=== PATIENT | female | born 1965 | race Caucasian/White ===

== ENCOUNTER 2016-08-07 17:09 | Emergency (ER) | payer MEDICARE, MEDICAID ==
--- NOTE | 2016-08-07 17:48 | ER Document Report ---
ED Medical Screen (RME) - General Chief Complaint: Rib Pain Stated Complaint: LEFT FLANK PAIN TRAVEL OUTSIDE OF THE [place] IN LAST 30 DAYS: No - HPI Notes: 08/07/16 17:47 Patient coming in with left lateral chest wall pain started about 4 hours prior to arrival sharp shooting stabbing. Difficult to assess due to patient closing the possible rash beginning at the area. Ration currently on treatment for pneumonia and Levaquin. - Related Data Allergies/Adverse Reactions: cefaclor [From Ceclor] Allergy (Verified 08/07/16 17:35) Penicillins Allergy (Verified 08/07/16 17:35) Past Medical History Renal/ Medical History: Denies: Hx Peritoneal Dialysis Review of Systems - Review of Systems Cardiovascular: Chest pain Physical Exam - Vital signs Vitals: Temp Pulse Resp BP Pulse Ox 97.9 F 92 20 142/88 H 96 08/07/16 17:37 08/07/16 17:37 08/07/16 17:37 08/07/16 17:37 08/07/16 17:37 - Respiratory Respiratory status: No respiratory distress Chest status: Tender - Tenderness to palpation of left-sided chest Course - Vital Signs Vital signs: Temp Pulse Resp BP Pulse Ox 97.9 F 92 20 142/88 H 96 08/07/16 17:37 08/07/16 17:37 08/07/16 17:37 08/07/16 17:37 08/07/16 17:37
[2016-08-07 19:24] LABS: ABSOLUTE BASOPHILS # (AUTO) 0.1 10^3/uL (0.0-0.2); ABSOLUTE EOSINOPHILS # (AUTO) 0.2 10^3/uL (0.0-0.6); ABSOLUTE LYMPHOCYTES (AUTO) 2.4 10^3/uL (0.5-4.7); ABSOLUTE MONOCYTES (AUTO) 0.6 10^3/uL (0.1-1.4); ABSOLUTE NEUT (AUTO) 2.8 10^3/uL (1.7-8.2); BASOPHILS % (AUTO) 1.4 % (0-2); EOSINOPHILS % (AUTO) 2.7 % (0-6); HEMATOCRIT 34.5 % (36.0-47.0); HEMOGLOBIN 11.7 g/dL (12.0-15.5); HGB HCT DIFFERENCE 0.6; LYMPHOCYTES % (AUTO) 40.2 % (13-45); MEAN CORPUSCULAR HEMOGLOBIN 29.2 pg (27.0-33.4); MEAN CORPUSCULAR VOLUME 86 fl (80-97); MONOCYTES % (AUTO) 9.8 % (3-13); RED BLOOD COUNT 4.01 10^6/uL (3.72-5.28); RED CELL DISTRIBUTION WIDTH 15.1 % (11.5-14.0); SEGMENTED NEUTROPHILS % (AUTO) 45.9 % (42-78); WHITE BLOOD COUNT 6.1 10^3/uL (4.0-10.5)
[2016-08-07 19:37] LABS: ALANINE AMINOTRANSFERASE 21 U/L (9-52); ALBUMIN 3.4 g/dL (3.5-5.0); ALKALINE PHOSPHATASE 74 U/L (38-126); ANION GAP 12 (5-19); ASPARTATE AMINO TRANSFERASE 17 U/L (14-36); BILIRUBIN,DIRECT 0.3 mg/dL (0.0-0.4); BILIRUBIN,TOTAL 0.4 mg/dL (0.2-1.3); BLOOD UREA NITROGEN 5 mg/dL (7-20); CALCIUM 9.1 mg/dL (8.4-10.2); CARBON DIOXIDE 27 mmol/L (22-30); CHLORIDE 107 mmol/L (98-107); CREATINE KINASE 60 U/L (30-135); CREATININE RESULT 1.02 mg/dL (0.52-1.25); GLUCOSE 86 mg/dL (75-110); POTASSIUM 3.5 mmol/L (3.6-5.0); SODIUM 146.3 mmol/L (137-145)
[2016-08-07] MEDS ORDERED: MORPHINE SULFATE 10 MG/ML INJ IV PRN ×2 (19:41→22:37)
[2016-08-07] MEDS ORDERED: ONDANSETRON HCL INJ/PF 4 MG/2 ML SDV IV ONE (19:42)
[2016-08-07 19:48] LABS: TROPONIN I 0.016 ng/mL
[2016-08-07 19:49] LABS: CREATINE KINASE MB < 0.22 ng/mL (<4.55)
[2016-08-07 19:51] LABS: PROTHROMBIN TIME 13.4 SEC (11.4-15.4)
[2016-08-07 20:11] LABS: APPEARANCE,URINE SLIGHTLY-CLOUDY; BILIRUBIN,URINE NEGATIVE (NEGATIVE); GLUCOSE, URINE NEGATIVE (NEGATIVE); KETONES,URINE NEGATIVE (NEGATIVE); LEUKOCYTE ESTERASE,URINE NEGATIVE (NEGATIVE); NITRITE,URINE NEGATIVE (NEGATIVE); PROTEIN,URINE NEGATIVE (NEGATIVE); URINE SPECIFIC GRAVITY 1.018; UROBILINOGEN,URINE NEGATIVE mg/dL (<2.0)
--- NOTE | 2016-08-07 20:44 | ER Document Report ---
ED General - General Chief Complaint: Rib Pain Stated Complaint: LEFT FLANK PAIN Time seen by provider: 20:43 Mode of Arrival: Ambulatory Information source: Patient Notes: This is a 50-year-old female with a history of bronchitis, mono and a recent diagnosis of pneumonia (just finished 7 days of Levaquin and prednisone). The patient presents to the emergency room with sharp left-sided pleuritic chest pain since yesterday. TRAVEL OUTSIDE OF THE [place] IN LAST 30 DAYS: No - HPI Onset: Yesterday Onset/Duration: Gradual Quality of pain: Sharp Severity: Moderate Pain Level: 3 Associated symptoms: Chest pain. denies: Fever, Shortness of breath Exacerbated by: Denies Relieved by: Denies Similar symptoms previously: No Recently seen / treated by doctor: No - Related Data Allergies/Adverse Reactions: cefaclor [From [facility]] Allergy (Verified 08/07/16 17:35) Penicillins Allergy (Verified 08/07/16 17:35) Past Medical History - General Information source: Patient - Social History Smoking Status: Never Smoker Chew tobacco use (# tins/day): No Frequency of alcohol use: None Drug Abuse: None Lives with: Family Family History: Reviewed & Not Pertinent Patient has suicidal ideation: No Patient has homicidal ideation: No Pulmonary Medical History: Reports: Hx Pneumonia Renal/ Medical History: Denies: Hx Peritoneal Dialysis Past Surgical History: Reports: Hx Cholecystectomy Review of Systems - Review of Systems Notes: Review of systems: Constitutional: Denies fever, chills. EENT: Denies ear pain, sinus tenderness, throat pain, throat swelling. Cardiovascular: See H&P Respiratory: See H&P Abdomen: Denies abdominal pain, nausea, vomiting, diarrhea. Denies BRBPR or melena. Genitourinary: Denies dysuria, pyuria, hematuria, flank pain. Musculoskeletal: denies joint pain or swelling, denies back pain. Neurologic: Denies headache, photophobia, neck stiffness, weakness. Denies loss of bowel or bladder function. Denies saddle anesthesia. Skin: Denies rash, lesions. Physical Exam - Vital signs Vitals: Temp Pulse Resp BP Pulse Ox 97.9 F 92 20 142/88 H 96 08/07/16 17:37 08/07/16 17:37 08/07/16 17:37 08/07/16 17:37 08/07/16 17:37 Notes: Physical exam: GENERAL: 50-year-old female, alert and oriented 3, no acute distress. Oxygen saturation 96% room air. HEAD: Atraumatic, normocephalic. EYES: Pupils equal round and reactive to light, extraocular movements intact, sclera anicteric, conjunctiva are normal. ENT: TMs normal, nares patent, oropharynx clear without exudates. Moist mucous membranes. NECK: Normal range of motion, supple without lymphadenopathy or JVD. LUNGS: Breath sounds clear to auscultation bilaterally and equal. No wheezes rales or rhonchi. HEART: Regular rate and rhythm without murmurs, rubs or gallops. ABDOMEN: Soft, normoactive bowel sounds. No tenderness to palpation. No guarding, no rebound. No masses appreciated. EXTREMITIES: Normal range of motion, no pitting or edema. No clubbing or cyanosis. NEUROLOGICAL: Cranial nerves II through XII grossly intact. Normal speech, normal gait. PSYCH: Normal mood, normal affect. SKIN: Warm, Dry, normal turgor, no rashes or lesions noted. Course - Re-evaluation Re-evalutation: 08/08/16 00:16 Note: This is a 50-year-old female somewhat overweight or presents to the emergency room with pleuritic chest pain for one day. She gives a history of having bronchitis, then mono than a pneumonia and just recently finished seven- day course of Levaquin. Her symptoms are very pleuritic in nature. We were unable to do a CTA due to poor antecubital IV access. A VQ scan was performed which showed no mismatches. They did see atelectasis down in the left lower lung and there was a defect in this area (i.e. matched). This is suggestive against pulmonary emboli. The patient has not had any lower extremity symptoms , however, her D-dimer is quite elevated. It's unclear whether this could be due to her recent pneumonia. In any event, I did give her some subcutaneous Lovenox and we will have her come back tomorrow morning for bilateral lower extremity Doppler exam. If the lower extremity Doppler exam was negative, I would stop there. I gave the patient a copy of all her labs to follow up with her primary care doctor. The case was discussed with Dr. Parker of hematology. - Vital Signs Vital signs: Temp Pulse Resp BP Pulse Ox 97.9 F 92 16 100/74 94 08/07/16 17:37 08/07/16 17:37 08/07/16 22:49 08/07/16 22:49 08/07/16 22:49 - Laboratory Result Diagrams: 08/07/16 18:50 08/07/16 18:50 Laboratory results interpreted by me: 08/07/16 08/07/16 08/07/16 18:50 18:50 23:07 Hgb 11.7 L Hct 34.5 L RDW 15.1 H D-Dimer 2.21 H Sodium 146.3 H Potassium 3.5 L BUN 5 L Est GFR (Non-Af Amer) 57 L Total Protein 6.0 L Albumin 3.4 L - Diagnostic Test Radiology reviewed: Image reviewed, Reports reviewed - Chest x-ray shows no infiltrates - EKG Interpretation by Me Rate: Normal Rhythm: NSR - EKG shows normal sinus rhythm with a ventricular rate of 87, no acute ST-T wave changes. Discharge - Discharge Clinical Impression: pleurisy Condition: Stable Disposition: HOME, SELF-CARE Additional Instructions: Today in the ER: One of the blood tests (d-dimer) was elevated. This test can be elevated and the presence of blood clots. However, You had a ventilation perfusion scan of your lung to look for blood clots. The test did not show any evidence of blood clots. He would like you to come back in the morning to the outpatient radiology to have bilateral lower extremity Doppler ultrasounds. He would enter the front of the hospital and then ask for outpatient radiology. Bring the hospital imaging performed with you when you go. Continue follow-up with your primary care doctor, bring a copy of today's labs and x-ray reports with you. Return to the emergency room for worsening pain, shortness of breath or concerns he getting worse. Prescriptions: Hydrocodone/Acetaminophen [Poyntelle 5-325 mg Tablet] 1 tab PO Q6HP PRN #14 tablet PRN Reason: Referrals: SHAHRAM DUVALL MD [Primary Care Provider] - Follow up in 3-5 days (Bring a copy of today's lab work and radiology reports with you when you go to the physician' s office.)
--- NOTE | 2016-08-07 20:50 | EKG REPORT ---
SEVERITY:- BORDERLINE ECG - SINUS RHYTHM PROBABLE LEFT ATRIAL ABNORMALITY BORDERLINE R WAVE PROGRESSION, ANTERIOR LEADS : Confirmed by: Vasyl Denise 07-Aug-2016 20:49:33
[2016-08-07] MEDS ORDERED: MAGNESIUM SULFATE/D5W 100 ML IV ONE (23:24)
[2016-08-07] MEDS ORDERED: POTASSIUM CHLORIDE 20 MEQ/15 ML UDCUP PO ONE (23:24)
[2016-08-08] MEDS ORDERED: HYDROCODONE/ACETAMINOPHEN 5-325 MG 6 TAB/DSPK PO PRN (00:09)
[2016-08-08] MEDS ORDERED: ENOXAPARIN SODIUM INJ 100 MG/1 ML DISP.SYRIN SUBCUT ONE (00:10)
[2016-08-08 01:51] VITALS: BP 104/55
== END 2016-08-08 00:30 | disposition home or self-care (01) ==
LOC: ER 17:09
DX: R09.1 Pleurisy (principal); J98.11 Atelectasis; Z87.01 Personal history of pneumonia (recurrent); Z88.1 Allergy status to other antibiotic agents; Z88.0 Allergy status to penicillin; E66.3 Overweight; Z68.36 Body mass index [BMI] 36.0-36.9, adult
CPT/HCPCS: 93005; 96376; 99284; 96372; 96374; 96375; 36415; 82553; 82550; 85025; 85610; 80053; 81001; 84484; 85379; 71020; 78582; 93010; A9540; A9567; J2270; A9270 ×2; J2405; J1650; Q9969

== ENCOUNTER → 2016-08-08 | Outpatient (CLI) | payer MEDICARE, MEDICAID | LOC: SP 13:02 | PROVIDERS: ATTEND Emergency Medicine | DX: R79.1 Abnormal coagulation profile (principal); R07.81 Pleurodynia | CPT/HCPCS: 93970 ==

== ENCOUNTER 2016-11-25 13:04 | Emergency (ER) | payer MEDICARE, MEDICAID ==
[2016-11-25 13:18] VITALS: BP 131/89
--- NOTE | 2016-11-25 14:21 | ER Document Report ---
HPI - HPI Patient complains to provider of: spider bite left ear Onset: Yesterday Pain Level: 3 Context: 50-year-old female complaining of possible spider bite to the external left ear. She cannot really see it but she can feel it and she is worried that it is a spider bite. It feels irritated and itchy. Associated Symptoms: None Exacerbated by: Denies Relieved by: Denies Similar symptoms previously: Yes Recently seen / treated by doctor: No - ROS ROS below otherwise negative: Yes Systems Reviewed and Negative: Yes All other systems reviewed and negative - DERM Skin Color: Normal Past Medical History - General Information source: Patient - Social History Smoking Status: Never Smoker Frequency of alcohol use: None Drug Abuse: None Lives with: Family Family History: Reviewed & Not Pertinent Pulmonary Medical History: Reports: Hx Pneumonia Renal/ Medical History: Denies: Hx Peritoneal Dialysis Past Surgical History: Reports: Hx Cholecystectomy Vertical Provider Document - CONSTITUTIONAL Agree With Documented VS: Yes - INFECTION CONTROL TRAVEL OUTSIDE OF THE [place] IN LAST 30 DAYS: No - HEENT HEENT: Atraumatic, Normocephalic Notes: Left external ear over the cartilage is a crusted 3 mm area that looks like she scratched. There is no tissue necrosis. - NECK Neck: Supple - RESPIRATORY O2 Sat by Pulse Oximetry: 95 - NEURO Level of Consciousness: Awake, Alert - DERM Integumentary: Warm, Dry Notes: see above Course - Vital Signs Vital signs: Temp Pulse Resp BP Pulse Ox 99 F 90 16 131/89 H 95 11/25/16 13:15 11/25/16 13:15 11/25/16 13:15 11/25/16 13:15 11/25/16 13:15 Discharge - Discharge Clinical Impression: left external ear insect bite Condition: Good Disposition: HOME, SELF-CARE Instructions: Bactroban Ointment ([facility]) Additional Instructions: bactroban small amount three times per day for 3 days to er any concerns Please complete the patient satisfaction survey if you get one, and return it.. If you do not receive a survey, then you can go to the [facility] website, [email or web address] and place your comments about your very good care. Thank you very much. It was a pleasure being your medical provider today. Referrals: SHAHRAM DUVALL MD [Primary Care Provider] - Follow up as needed
[2016-11-25] MEDS ORDERED: MUPIROCIN 2% OINTMENT 22 GM TP ONE (14:27)
== END 2016-11-25 15:00 | disposition home or self-care (01) ==
LOC: ER 13:04
DX: S00.462A Insect bite (nonvenomous) of left ear, initial encounter (principal); W57.XXXA Bitten or stung by nonvenomous insect and other nonvenomous arthropods, initial encounter
CPT/HCPCS: 99281; A9270; J3490

== ENCOUNTER 2016-11-27 20:11 | Emergency (ER) | payer MEDICARE, MEDICAID ==
[2016-11-27 20:25] VITALS: BP 141/87
--- NOTE | 2016-11-27 22:29 | ER Document Report ---
ED General - General Chief Complaint: spider bite Stated Complaint: POSSIBLE SPIDER BITE Time Seen by Provider: 11/27/16 22:21 Notes: Patient is a 50-year-old female presents with complaint of a bite sharon to her left ear. She was seen a few days ago and told to place bacitracin ointment over it. She says she developed a scab over the area is concerned with this. She said she initially had some redness but the redness has since gone. She also has 2 new bite fuller just below the hairline in the back of her neck. She is unsure what is causing this. She denies any fevers. No vomiting. No facial swelling. No other complaints at this time. TRAVEL OUTSIDE OF THE [place] IN LAST 30 DAYS: No - Related Data Allergies/Adverse Reactions: cefaclor [From [facility]] Allergy (Verified 11/27/16 20:25) Penicillins Allergy (Verified 11/27/16 20:25) Past Medical History - Social History Smoking Status: Unknown if Ever Smoked Frequency of alcohol use: None Drug Abuse: None Family History: Reviewed & Not Pertinent Patient has suicidal ideation: No Patient has homicidal ideation: No Pulmonary Medical History: Reports: Hx Pneumonia Renal/ Medical History: Denies: Hx Peritoneal Dialysis Past Surgical History: Reports: Hx Cholecystectomy Review of Systems - Review of Systems Notes: My Normal Review Basic REVIEW OF SYSTEMS: CONSTITUTIONAL : Denies fever, chills, or sweats. Denies recent illness. EENT: left Ear irritation SKIN: 2 small bug bites just below the hairline on her neck. ALL OTHER SYSTEMS REVIEWED AND NEGATIVE. Physical Exam - Vital signs Vitals: Temp Pulse Resp BP Pulse Ox 97.8 F 94 18 141/87 H 98 11/27/16 20:23 11/27/16 20:23 11/27/16 20:23 11/27/16 20:23 11/27/16 20:23 - Notes Notes: General Appearance: Well nourished, alert, cooperative, no acute distress, no obvious discomfort. Vitals: reviewed, See vital signs table. Head: no swelling or tenderness to the head Eyes: PERRL, EOMI, Conjuctiva clear Ear: Patient is left ear has an approximately 2 mm scab over the antihelix. There is a small rounded circular. There is no associated tissue necrosis. No surrounding erythema. Neck: Supple, no neck tenderness, 2 small bug bites just below the hairline on the posterior neck. No surrounding erythema or signs of infection. Neuro: speech clear, oriented x 3, normal affect, responds appropriately to questions. Course - Vital Signs Vital signs: Temp Pulse Resp BP Pulse Ox 97.8 F 94 18 141/87 H 98 11/27/16 20:23 11/27/16 20:23 11/27/16 20:23 11/27/16 20:23 11/27/16 20:23 - Transfer of Care Notes: 11/28/16 00:29 Patient is has a very small scab from what appears to be previous bug bites over the antihelix of the ear. There is no surrounding erythema or signs of infection. I informed her that once new skin forms underneath the scab the scab will most likely follow-up. I told her if she develops any redness or swelling to the ear that she should return to the ER immediately. Patient agrees with plan and will be discharged home. Dictation of this chart was performed using voice recognition software; therefore, there may be some unintended grammatical errors. Discharge - Discharge Clinical Impression: Scab Bug bite Qualifiers: Encounter type: initial encounter Qualified Code(s): W57.XXXA - Bitten or stung by nonvenomous insect and other nonvenomous arthropods, initial encounter Condition: Good Disposition: HOME, SELF-CARE Additional Instructions: Please return to the ER if you have any spreading redness or swelling from the scab on your ear. Please follow up with your doctor or the ER in 1 week if the scab is not gone. Referrals: SHAHRAM DUVALL MD [Primary Care Provider] - Follow up as needed
== END 2016-11-27 22:40 | disposition home or self-care (01) ==
LOC: ER 20:11
DX: S10.86XA Insect bite of other specified part of neck, initial encounter (principal); S00.462A Insect bite (nonvenomous) of left ear, initial encounter; W57.XXXA Bitten or stung by nonvenomous insect and other nonvenomous arthropods, initial encounter; Z88.0 Allergy status to penicillin; Z90.49 Acquired absence of other specified parts of digestive tract
CPT/HCPCS: 99282

== ENCOUNTER 2018-06-01 16:23 | Emergency (ER) | payer MEDICARE, MEDICAID ==
[2018-06-01] MEDS ORDERED: NORMAL SALINE 1000 ML 1,000 ML IV PRN (17:03)
--- NOTE | 2018-06-01 17:05 | ER Document Report ---
ED Medical Screen (RME) - General Chief Complaint: Diarrhea Stated Complaint: LOOSE BOWELS Time Seen by Provider: 06/01/18 17:01 Primary Care Provider: KEIRA DUVALL MD [Primary Care Provider] - Follow up as needed Notes: Patient is complaining of diarrhea daily for the past month or more. She says she has about 2 loose stools a day that are loose and watery. No blood in the bowel movements. Does not have any abdominal pains. Does not have any nausea or vomiting. Never diagnosed with a gastrointestinal disease. Says she has no appetite and does not eat much, although she says she does drink fluids. Denies any difficulty breathing or shortness of breath. Denies fever. Was not treated with any antibiotics in the months before she started having the diarrhea. Heart rates about 120-130. TRAVEL OUTSIDE OF THE [place] IN LAST 30 DAYS: No - Related Data Allergies/Adverse Reactions: cefaclor [From Ceclor] Allergy (Verified 06/01/18 16:30) Penicillins Allergy (Verified 06/01/18 16:30) Past Medical History - Social History Chew tobacco use (# tins/day): No Frequency of alcohol use: None Drug Abuse: None Pulmonary Medical History: Reports: Hx Pneumonia Renal/ Medical History: Denies: Hx Peritoneal Dialysis Past Surgical History: Reports: Hx Cholecystectomy Physical Exam - Vital signs Vitals: Temp Pulse Resp BP Pulse Ox 99.0 F 123 H 15 107/58 L 95 06/01/18 16:36 06/01/18 16:36 06/01/18 16:36 06/01/18 16:36 06/01/18 16:36 Course - Vital Signs Vital signs: Temp Pulse Resp BP Pulse Ox 99.0 F 123 H 15 107/58 L 95 06/01/18 16:36 06/01/18 16:36 06/01/18 16:36 06/01/18 16:36 06/01/18 16:36 Doctor's Discharge - Discharge Referrals: KEIRA DUVALL MD [Primary Care Provider] - Follow up as needed
--- NOTE | 2018-06-01 18:29 | EKG REPORT ---
SEVERITY:- ABNORMAL ECG - SINUS TACHYCARDIA CONSIDER ANTERIOR INFARCT ABNORMAL T, CONSIDER ISCHEMIA, LATERAL LEADS : Confirmed by: Teofilo Ahn MD 01-Jun-2018 18:28:11
[2018-06-01 18:57] LABS: ABSOLUTE EOSINOPHILS # (AUTO) 0.1 10^3/uL (0.0-0.6); ABSOLUTE MONOCYTES (AUTO) 0.4 10^3/uL (0.1-1.4); ABSOLUTE NEUT (AUTO) 3.5 10^3/uL (1.7-8.2); BASOPHILS % (AUTO) 0.8 % (0-2); EOSINOPHILS % (AUTO) 0.9 % (0-6); HEMATOCRIT 47.2 % (36.0-47.0); HEMOGLOBIN 16.2 g/dL (12.0-15.5); LYMPHOCYTES % (AUTO) 32.9 % (13-45); MEAN CORPUSCULAR HEMOGLOBIN 28.7 pg (27.0-33.4); MEAN CORPUSCULAR HGB CONC 34.3 g/dL (32.0-36.0); MEAN CORPUSCULAR VOLUME 84 fl (80-97); MONOCYTES % (AUTO) 6.4 % (3-13); PLATELET COUNT 158 10^3/uL (150-450); RED BLOOD COUNT 5.64 10^6/uL (3.72-5.28); RED CELL DISTRIBUTION WIDTH 14.2 % (11.5-14.0); TOTAL CELLS COUNTED % (AUTO) 100 %; WHITE BLOOD COUNT 5.9 10^3/uL (4.0-10.5)
[2018-06-01 19:09] LABS: ALANINE AMINOTRANSFERASE 40 U/L (9-52); ALBUMIN 4.5 g/dL (3.5-5.0); ALKALINE PHOSPHATASE 150 U/L (38-126); ANION GAP 10 (5-19); ASPARTATE AMINO TRANSFERASE 43 U/L (14-36); BILIRUBIN,DIRECT 0.3 mg/dL (0.0-0.4); BILIRUBIN,TOTAL 0.8 mg/dL (0.2-1.3); BLOOD UREA NITROGEN 11 mg/dL (7-20); CALCIUM 10.1 mg/dL (8.4-10.2); CARBON DIOXIDE 26 mmol/L (22-30); CHLORIDE 106 mmol/L (98-107); GLUCOSE 101 mg/dL (75-110); LIPASE 150.1 U/L (23-300); POTASSIUM 3.2 mmol/L (3.6-5.0); SODIUM 141.9 mmol/L (137-145); TOTAL PROTEIN 7.5 g/dL (6.3-8.2)
[2018-06-01 19:11] LABS: APPEARANCE,URINE CLOUDY; BILIRUBIN,URINE MODERATE (NEGATIVE); GLUCOSE, URINE NEGATIVE (NEGATIVE); KETONES,URINE TRACE mg/dL (NEGATIVE); LEUKOCYTE ESTERASE,URINE TRACE (NEGATIVE); NITRITE,URINE NEGATIVE (NEGATIVE); PROTEIN,URINE 100 mg/dL (NEGATIVE); URINE SPECIFIC GRAVITY 1.032
[2018-06-01 19:16] LABS: COLOR,URINE YELLOW
[2018-06-01 19:21] LABS: CREATINE KINASE MB < 0.22 ng/mL (<4.55); TROPONIN I < 0.012 ng/mL
[2018-06-01 19:24] LABS: FREE T4 (FREE THYROXINE) 1.03 ng/dL (0.78-2.19)
[2018-06-01 19:38] LABS: THYROID STIMULATING HORMONE 1.92 uIU/mL (0.47-4.68)
[2018-06-01] MEDS ORDERED: CIPROFLOXACIN HCL 500 MG TABLET PO ONE (20:05)
[2018-06-01] MEDS ORDERED: RINGERS SOLUTION,LACTATED 1,000 ML IV ONE (20:09)
--- NOTE | 2018-06-01 20:11 | ER Document Report ---
ED General - General Chief Complaint: Diarrhea Stated Complaint: LOOSE BOWELS Time Seen by Provider: 06/01/18 17:01 Primary Care Provider: KEIRA DUVALL MD [Primary Care Provider] - Follow up tomorrow Notes: Patient is a 52-year old female without chronic medical problems, prior surgical history of a cholecystectomy in the remote past who presents complaining of approximately 1 month of diarrhea. The patient reports that she is having 2-3 large volume, watery bowel movements daily. Notes some intermittent abdominal cramping near episodes of bowel movements that is a global, cramping, mild discomfort that resolves after having bowel movements. She states that she became concerned when she began to feel lightheaded or like she was about to pass out particularly going from a sitting to standing position today. This did prompt her to come to the emergency department. She has not seen her general physician regarding today's concerns. Denies any associated vomiting but states that she has no appetite. Able to tolerate fluids without difficulty. No history of similar symptoms in the past. No fever or constitutional symptoms. No recent travel. TRAVEL OUTSIDE OF THE [place] IN LAST 30 DAYS: No - Related Data Allergies/Adverse Reactions: cefaclor [From [facility]] Allergy (Verified 06/01/18 16:30) Penicillins Allergy (Verified 06/01/18 16:30) Past Medical History - General Information source: Patient - Social History Smoking Status: Current Every Day Smoker Chew tobacco use (# tins/day): No Frequency of alcohol use: None Drug Abuse: None Lives with: Alone Family History: Reviewed & Not Pertinent Patient has suicidal ideation: No Patient has homicidal ideation: No Pulmonary Medical History: Reports: Hx Pneumonia Renal/ Medical History: Denies: Hx Peritoneal Dialysis Past Surgical History: Reports: Hx Cholecystectomy Review of Systems - Review of Systems Notes: Constitutional: Negative for fever. HENT: Negative for sore throat. Eyes: Negative for visual changes. Cardiovascular: Negative for chest pain. Respiratory: Negative for shortness of breath. Gastrointestinal: Positive for abdominal cramping and diarrhea Genitourinary: Negative for dysuria. Musculoskeletal: Negative for back pain. Skin: Negative for rash. Neurological: Negative for headaches, weakness or numbness. 10 point ROS negative except as marked above and in HPI. Physical Exam - Vital signs Vitals: Temp Pulse Resp BP Pulse Ox 99.0 F 123 H 15 107/58 L 95 06/01/18 16:36 06/01/18 16:36 06/01/18 16:36 06/01/18 16:36 06/01/18 16:36 Interpretation: Tachycardic - Resolved at the time of my assessment Notes: PHYSICAL EXAMINATION: GENERAL: Well-appearing, well-nourished and in no acute distress. HEAD: Atraumatic, normocephalic. EYES: Pupils equal round and reactive to light, extraocular movements intact, sclera anicteric, conjunctiva are normal. ENT: nares patent, oropharynx clear without exudates. Moderately dry mucous membranes. NECK: Normal range of motion, supple without lymphadenopathy LUNGS: Breath sounds clear to auscultation bilaterally and equal. No wheezes rales or rhonchi. HEART: Regular rate and rhythm without murmurs ABDOMEN: Soft, nontender, normoactive bowel sounds. No guarding, no rebound. No masses appreciated. EXTREMITIES: Normal range of motion, no pitting or edema. No cyanosis. NEUROLOGICAL: No focal neurological deficits. Moves all extremities spontaneously and on command. PSYCH: Normal mood, normal affect. SKIN: Warm, Dry, normal turgor, no rashes or lesions noted. Course - Re-evaluation Re-evalutation: 06/01/18 20:10 Patient presents with lightheadedness, general weakness after having approximately 2-3 diarrheal bowel movements daily for the past 1 month. Notes that she has had minimal p.o. intake over that time due to lack of appetite but denies any associated vomiting or significant nausea. She denies any abdominal pain and has no abdominal pain on examination. No recent antibiotic use. Patient has been unable to provide a stool sample while here in the emergency department. Initially patient was noted to be moderately hypotensive and tach ycardic. At the time of my assessment her heart rate is 93 after receiving 1 L of normal saline. She will receive a second liter of lactated Ringer's. Her laboratories are notable for mild hypokalemia at 3.2, urinalysis consistent dehydration and CBC is consistent with hemoconcentration again with dehydration. Given the duration of the patient's symptoms she will be n.p.o. be treated with a 3-day course of ciprofloxacin. She has no risk factors for Clostridium difficile. Given absence of any abdominal pain on exam low clinical suspicion for an acute surgical intra-abdominal pathology. I have strongly advised the patient that she needs to follow-up closely with her primary care physician for formal stool assay testing as well as reassessment of her abdomen. At this time will discharge with return precautions and follow-up recommendations. Verbal discharge instructions given a the bedside and opportunity for questions given. Medication warnings reviewed. Patient is in agreement with this plan and has verbalized understanding of return precautions and the need for primary care follow-up in the next 24-72 hours. - Vital Signs Vital signs: Temp Pulse Resp BP Pulse Ox 98.2 F 83 18 104/85 95 06/01/18 21:05 06/01/18 21:05 06/01/18 21:05 06/01/18 21:05 06/01/18 21:05 - Laboratory Result Diagrams: 06/01/18 17:52 06/01/18 18:15 Laboratory results interpreted by me: 06/01/18 06/01/18 06/01/18 17:52 18:15 18:15 RBC 5.64 H Hgb 16.2 H Hct 47.2 H RDW 14.2 H Potassium 3.2 L Est GFR (Non-Af Amer) 58 L AST 43 H Alkaline Phosphatase 150 H Urine Protein 100 H Urine Ketones TRACE H Urine Bilirubin MODERATE H Urine Urobilinogen 4.0 H Ur Leukocyte Esterase TRACE H Discharge - Discharge Clinical Impression: Dehydration, Lightheadedness Diarrhea Qualifiers: Diarrhea type: unspecified type Qualified Code(s): R19.7 - Diarrhea, u nspecified Condition: Stable Disposition: HOME, SELF-CARE Additional Instructions: Your seen today for 1 month of ongoing diarrhea and lightheadedness. Your lightheadedness/weakness is likely due to becoming dehydrated as your heart rate was elevated and your blood pressure was low when you presented to the hospital. This did improve after receiving IV fluids. You need to continue drinking plenty of fluids at home. I would recommend solution such as Pedialyte, Gatorade or Powerade as opposed to water if you are unable to take food. If your eating food normally, you may use water. Your being started on a brief course of antibiotics given the duration of your diarrhea. Please take the ciprofloxacin as prescribed. You were unable to provide a stool sample while here in the emergency department today. I would strongly encourage formal stool testing be done to identify any possible infectious cause of your symptoms. Please contact your primary care doctor in the next 24 hours to schedule an immediate follow-up for stool testing and reassessment. Your laboratories are otherwise reassuring today other than showing that you are dehydrated. Please return to the emergency department immediately if you pass out, have continued lightheadedness, develop a fever of greater than 100.4 F, began having vom iting, or have any other symptoms that are worrisome to you. Prescriptions: Ciprofloxacin HCl [Cipro 500 mg Tablet] 500 mg PO BID #6 tablet Referrals: KEIRA DUVALL MD [Primary Care Provider] - Follow up tomorrow
[2018-06-01 21:10] VITALS: BP 104/85
== END 2018-06-01 21:11 | disposition home or self-care (01) ==
LOC: ER 16:23
DX: E86.0 Dehydration (principal); R19.7 Diarrhea, unspecified; R42 Dizziness and giddiness; F17.200 Nicotine dependence, unspecified, uncomplicated; Z88.0 Allergy status to penicillin; Z90.49 Acquired absence of other specified parts of digestive tract
CPT/HCPCS: 93005; 99284; 96360; 96361; 36415; 84439; 82553; 83690; 84443; 85025; 80053; 81001; 84484; 93010; A9270; J7030; J7120

== ENCOUNTER 2018-08-19 10:59 | Inpatient (IN) | payer MEDICARE, MEDICAID ==
[2018-08-19] MEDS ORDERED: IPRATROPIUM/ALBUTEROL 0.5-2.5 MG/3 ML AMPUL NEB ONE ×2 (11:09→15:34)
[2018-08-19] MEDS ORDERED: METHYLPREDNISOLONE INJ 125 MG/2 ML SDV IV ONE (11:09)
[2018-08-19] MEDS ORDERED: NORMAL SALINE 1000 ML 1,000 ML IV ONE (11:11)
--- NOTE | 2018-08-19 11:13 | ER Document Report ---
ED Medical Screen (RME) - General Chief Complaint: Chest Congestion Stated Complaint: DIFFICULTY BREATHING Time Seen by Provider: 08/19/18 11:07 Primary Care Provider: KEIRA DUVALL MD [Primary Care Provider] - Follow up as needed Mode of Arrival: Ambulatory Information source: Patient Notes: Patient presents with 2-day history of productive cough and shortness of breath. Patient reports low-grade fever of about 100. Patient complains of chest tightness and rib pain with coughing. Patient does report a history of COPD although denies any use of oxygen. Patient does continue to smoke. hx: Chronic back pain, bipolar, COPD, GERD I have greeted and performed a rapid initial assessment of this patient. A comprehensive ED assessment and evaluation of the patient, analysis of test results and completion of the medical decision making process will be conducted by additional ED providers. TRAVEL OUTSIDE OF THE [place] IN LAST 30 DAYS: No - Related Data Allergies/Adverse Reactions: cefaclor [From Ceclor] Allergy (Verified 08/19/18 10:59) Penicillins Allergy (Verified 08/19/18 10:59) Past Medical History - Social History Chew tobacco use (# tins/day): No Frequency of alcohol use: None Drug Abuse: None Pulmonary Medical History: Reports: Hx Pneumonia Renal/ Medical History: Denies: Hx Peritoneal Dialysis Psychiatric Medical History: Reports: Hx Bipolar Disorder, Hx Depression Past Surgical History: Reports: Hx Cholecystectomy Physical Exam - Vital signs Vitals: Temp Pulse Resp BP Pulse Ox 98.6 F 127 H 36 H 95/59 L 89 L 08/19/18 11:06 08/19/18 11:06 08/19/18 11:06 08/19/18 11:06 08/19/18 11:06 - Respiratory Respiratory status: Labored, Tachypnea Chest status: Pain with cough Breath sounds: Productive cough, Rhonchi, Wheezing Chest palpation: Tender Course - Vital Signs Vital signs: Temp Pulse Resp BP Pulse Ox 98.6 F 127 H 36 H 95/59 L 89 L 08/19/18 11:06 08/19/18 11:06 08/19/18 11:06 08/19/18 11:06 08/19/18 11:06 Doctor's Discharge - Discharge Referrals: KEIRA DUVALL MD [Primary Care Provider] - Follow up as needed
[2018-08-19 11:42] LABS: ABSOLUTE LYMPHOCYTES (AUTO) 0.8 10^3/uL (0.5-4.7); ABSOLUTE MONOCYTES (AUTO) 0.4 10^3/uL (0.1-1.4); ABSOLUTE NEUT (AUTO) 2.8 10^3/uL (1.7-8.2); BASOPHILS % (AUTO) 0.8 % (0-2); EOSINOPHILS % (AUTO) 0.1 % (0-6); HEMATOCRIT 35.8 % (36.0-47.0); HEMOGLOBIN 12.4 g/dL (12.0-15.5); LYMPHOCYTES % (AUTO) 18.9 % (13-45); MEAN CORPUSCULAR HEMOGLOBIN 30.3 pg (27.0-33.4); MEAN CORPUSCULAR HGB CONC 34.7 g/dL (32.0-36.0); MEAN CORPUSCULAR VOLUME 87 fl (80-97); MONOCYTES % (AUTO) 9.7 % (3-13); PLATELET COUNT 111 10^3/uL (150-450); RED BLOOD COUNT 4.11 10^6/uL (3.72-5.28); RED CELL DISTRIBUTION WIDTH 14.7 % (11.5-14.0); SEGMENTED NEUTROPHILS % (AUTO) 70.5 % (42-78); TOTAL CELLS COUNTED % (AUTO) 100 %
[2018-08-19] MEDS: ALBUTEROL SULFATE 0.083% NEB 2.5 MG/3 ML AMPUL NEB SCH ×2 (11:44→12:27)
[2018-08-19 11:57] LABS: ALANINE AMINOTRANSFERASE 22 U/L (9-52); ALBUMIN 3.6 g/dL (3.5-5.0); ALKALINE PHOSPHATASE 97 U/L (38-126); ANION GAP 6 (5-19); ASPARTATE AMINO TRANSFERASE 29 U/L (14-36); BILIRUBIN,DIRECT 0.4 mg/dL (0.0-0.4); BLOOD UREA NITROGEN 9 mg/dL (7-20); CALCIUM 8.8 mg/dL (8.4-10.2); CARBON DIOXIDE 30 mmol/L (22-30); CHLORIDE 100 mmol/L (98-107); CREATINE KINASE 97 U/L (30-135); GLUCOSE 120 mg/dL (75-110); POTASSIUM 3.5 mmol/L (3.6-5.0); SODIUM 136.3 mmol/L (137-145); TOTAL PROTEIN 6.4 g/dL (6.3-8.2)
[2018-08-19 12:09] LABS: CREATINE KINASE MB < 0.22 ng/mL (<4.55); TROPONIN I < 0.012 ng/mL
[2018-08-19] MEDS ORDERED: ALBUTEROL SULFATE 0.083% NEB 2.5 MG/3 ML AMPUL NEB ONE (12:26)
[2018-08-19] MEDS: MAGNESIUM SULFATE/D5W 1 GM/100 ML RTUPB IV SCH ×2 (12:35→13:33)
--- NOTE | 2018-08-19 13:06 | ER Document Report ---
Entered by RADHA FUNES SCRIBE 08/19/18 1157 Acting as scribe for:KAPIL HARTLEY MD ED General - General Mode of Arrival: Ambulatory Information source: Patient TRAVEL OUTSIDE OF THE [place] IN LAST 30 DAYS: No <KAPIL HARTLEY - Last Filed: 08/19/18 14:48> <ZACHARY MIKE - Last Filed: 08/19/18 15:35> - General Chief Complaint: Chest Congestion Stated Complaint: DIFFICULTY BREATHING Time Seen by Provider: 08/19/18 11:07 Primary Care Provider: KEIRA DUVALL MD [Primary Care Provider] - Follow up as needed Notes: Patient is a 52 year old male with COPD presents to the emergency department complaining of shortness of breath onset 2 days ago. Patient also complains of a temperature around 100.0 and chest tightness with coughing. She describes her cough as productive with clear sputum. Patient states she is a smoker but has been unable to do so since the onset of her smoking. She denies any oxygen use at home. Patient had an oxygen saturation rate of 89% in triage. (RADHA FUNES) Patient is a 52 year old male with COPD presents to the emergency department complaining of shortness of breath onset 2 days ago. Patient also complains of a temperature around 100.0 and chest tightness with coughing. She describes her cough as productive with clear sputum. Patient states she is a smoker but has been unable to do so since the onset of her smoking. She denies any oxygen use at home. Patient had an oxygen saturation rate of 89% in triage. (KAPIL HARTLEY) - Related Data Allergies/Adverse Reactions: cefaclor [From Ceclor] Allergy (Verified 08/19/18 10:59) Penicillins Allergy (Verified 08/19/18 10:59) Past Medical History - General Information source: Patient - Social History Smoking Status: Current Every Day Smoker Cigarette use (# per day): Yes - 1/2PPD Chew tobacco use (# tins/day): No Smoking Education Provided: Yes - discussed likely good of early demise if she c ontinues to smoke Frequency of alcohol use: None Drug Abuse: None Lives with: Family Family History: Reviewed & Not Pertinent Patient has suicidal ideation: No Patient has homicidal ideation: No Pulmonary Medical History: Reports: Hx COPD, Hx Pneumonia GI Medical History: Reports: Hx Gastroesophageal Reflux Disease Psychiatric Medical History: Reports: Hx Bipolar Disorder, Hx Depression Past Surgical History: Reports: Hx Cholecystectomy <KAPIL HARTLEY - Last Filed: 08/19/18 14:48> Review of Systems - Review of Systems Constitutional: No symptoms reported EENT: No symptoms reported Cardiovascular: No symptoms reported Respiratory: See HPI, Cough, Short of breath Gastrointestinal: No symptoms reported Genitourinary: No symptoms reported Female Genitourinary: No symptoms reported Musculoskeletal: No symptoms reported Skin: No symptoms reported Hematologic/Lymphatic: No symptoms reported Neurological/Psychological: No symptoms reported -: Yes All other systems reviewed and negative <[email or web address] Almodovar - Last Filed: 08/19/18 14:48> Physical Exam <KAPIL HARTLEY - Last Filed: 08/19/18 14:48> - Vital signs Vitals: Temp Pulse Resp BP Pulse Ox 98.6 F 127 H 36 H 95/59 L 89 L 08/19/18 11:06 08/19/18 11:06 08/19/18 11:06 08/19/18 11:06 08/19/18 11:06 - Notes Notes: GENERAL: Alert, interacts well. No acute distress. HEAD: Normocephalic, atraumatic. EYES: Pupils equal, round, and reactive to light. Extraocular movements intact. ENT: Oral mucosa moist, tongue midline. NECK: Full range of motion. Supple. Trachea midline. LUNGS: Actively receiving breathing treatment. Diffuse rhonchi and wheezes. No respiratory distress. HEART: Tachycardic. No murmurs, gallops, or rubs. ABDOMEN: Soft, non-tender. Non-distended. Bowel sounds present in all 4 quadrants. No guarding, rigidity, or rebound. EXTREMITIES: Moves all 4 extremities spontaneously. No edema. No cyanosis. NEUROLOGICAL: Alert and oriented x3. Normal speech. PSYCH: Normal affect, normal mood. SKIN: Warm, dry, normal turgor. No rashes or lesions noted. (RADHA FUNES) GENERAL: Alert, interacts well. No acute distress. HEAD: Normocephalic, atraumatic. EYES: Pupils equal, round, and reactive to light. Extraocular movements intact. ENT: Oral mucosa moist, tongue midline. NECK: Full range of motion. Supple. Trachea midline. LUNGS: Actively receiving breathing treatment. Diffuse rhonchi and wheezes. No respiratory distress. HEART: Tachycardic. No murmurs, gallops, or rubs. ABDOMEN: Soft, non-tender. Non-distended. Bowel sounds present in all 4 quadrants. No guarding, rigidity, or rebound. EXTREMITIES: Moves all 4 extremities spontaneously. No edema. No cyanosis. NEUROLOGICAL: Alert and oriented x3. Normal speech. PSYCH: Normal affect, normal mood. SKIN: Warm, dry, normal turgor. No rashes or lesions noted. (KAPIL HARTLEY) Course - Laboratory Result Diagrams: 08/19/18 11:32 08/19/18 11:32 - Diagnostic Test Radiology reviewed: Image reviewed, Reports reviewed - Chest x-ray shows COPD with hyperlucency in the upper lung alcazar bilaterally. No acute changes. - EKG Interpretation by Ct EKG shows normal: Sinus rhythm, [place], Intervals, QRS Complexes. abnormal: ST-T Waves - Borderline anterior lateral T abnormalities Rate: Tachycardia - 110 P Waves: LAE When compared to previous EKG there are: No significant change - Transfer of Care Care transferred to following provider: Dr. Mike <KAPIL HARTLEY - Last Filed: 08/19/18 14:48> - Laboratory Result Diagrams: 08/19/18 11:32 08/19/18 11:32 - Diagnostic Test Radiology reviewed: Image reviewed, Reports reviewed <ZACHARY MIKE - Last Filed: 08/19/18 15:35> - Re-evaluation Re-evalutation: 08/19/18 14:25 Patient's d-dimer is 1.07, the PO2 is 60.6 on 4 L nasal cannula. We will get a CTA chest to exclude pulmonary embolus as a contributor to her dyspnea. (KAPIL HARTLEY) - Vital Signs Vital signs: Temp Pulse Resp BP Pulse Ox 98.6 F 127 H 25 H 93/68 L 91 L 08/19/18 11:06 08/19/18 11:06 08/19/18 14:45 08/19/18 14:45 08/19/18 14:45 08/19/18 15:03 Patient received in sign out by Dr. Hartley with CTA pending. Ms. Gonzalez is a 52-year-old female with COPD, bipolar disorder that presents with complaint of 2 days of shortness of breath with worsening this morning. Patient is a pack per day smoker. Denies history of previous PE, DVT. She does report increasing cough. 08/19/18 15:26 PHYSICAL EXAMINATION: GENERAL: Respiratory distress HEAD: Atraumatic, normocephalic. EYES: Pupils equal round extraocular movements intact, conjunctiva are normal. ENT: Nares patent NECK: Normal range of motion LUNGS: Visibly dyspneic, hypoxic, increased work of breathing. Diminished breath sounds and lung alcazar bilaterally. Musculoskeletal: Normal range of motion NEUROLOGICAL: Normal speech, normal gait. PSYCH: Normal mood, normal affect. SKIN: Warm, Dry, normal turgor, no rashes or lesions noted. 08/19/18 15:33 Patient rate remains hypoxic on 4 L of nasal cannula. I have decided to place her on BiPAP. She has been accepted by [facility] for admission to the [facility]. CTA was reviewed and showed no evidence of pulmonary embolism. Does show significant scarring of the lung. Patient is agreeable with admission. Smoking cessation advised. (ZACHARY MIKE) - Laboratory Laboratory results interpreted by me: 08/19/18 08/19/18 08/19/18 11:32 11:32 11:32 Hct 35.8 L RDW 14.7 H Plt Count 111 L D-Dimer 1.07 H ABG pO2 ABG HCO3 ABG Total CO2 ABG O2 Saturation Sodium 136.3 L Potassium 3.5 L Est GFR ( Amer) 56 L Est GFR (Non-Af Amer) 46 L Glucose 120 H 08/19/18 13:35 Hct RDW Plt Count D-Dimer ABG pO2 60.6 L ABG HCO3 25.7 H ABG Total CO2 27.1 H ABG O2 Saturation 90.8 L Sodium Potassium Est GFR ( Amer) Est GFR (Non-Af Amer) Glucose - Transfer of Care Notes: 08/19/18 14:42 Patient is pending CTA chest. She will need to be admitted for her respiratory difficulties after the CT scan is done. (KAPIL HARTLEY) Critical Care Note - Critical Care Note Total time excluding time spent on procedures (mins): 40 <KAPIL HARTLEY - Last Filed: 08/19/18 14:48> Discharge <KAPIL HARTLEY - Last Filed: 08/19/18 14:48> - Discharge Admitting Provider: [facility] Unit Admitted: [facility] <ZACHARY MIKE - Last Filed: 08/19/18 15:35> - Discharge Clinical Impression: COPD with acute exacerbation, Hypoxemia, Tachycardia, Tobacco abuse disorder, Tachypnea, Respiratory distress Hypotension Qualifiers: Hypotension type: unspecified hypotension type Qualified Code(s): I95.9 - Hypotension, unspecified Condition: Fair Disposition: ADMITTED INPATIENT Referrals: KEIRA DUVALL MD [Primary Care Provider] - Follow up as needed Scribe Attestation: 08/19/18 13:17 I personally performed the services described in the documentation, reviewed and edited the documentation which was dictated to the scribe in my presence, and it accurately records my words and actions. (RADHA FUNES) 08/19/18 13:17 I personally performed the services described in the documentation, reviewed and edited the documentation which was dictated to the scribe in my presence, and it accurately records my words and actions. (KAPIL HARTLEY) I personally performed the services described in the documentation, reviewed and edited the documentation which was dictated to the scribe in my presence, and it accurately records my words and actions.
[2018-08-19] MEDS ORDERED: RINGERS SOLUTION,LACTATED 1,000 ML IV ONE (13:10)
--- NOTE | 2018-08-19 13:29 | RADIOLOGY REPORT (SQ) ---
EXAM DESCRIPTION: CHEST SINGLE VIEW COMPLETED DATE/TIME: 08/19/2018 1:19 pm REASON FOR STUDY: COPD exacerbation COMPARISON: Two-view chest 08/07/2016 EXAM PARAMETERS: NUMBER OF VIEWS: One view. TECHNIQUE: Single frontal radiographic view of the chest acquired. RADIATION DOSE: NA LIMITATIONS: None. FINDINGS: LUNGS AND PLEURA: Upper lobes are hyperlucent from obstructive disease. Mid and lower talia gs are free of focal infiltrates. No pleural effusion or pneumothorax. MEDIASTINUM AND HILAR STRUCTURES: No masses. Contour normal. HEART AND VASCULAR STRUCTURES: Heart normal in size. Normal vasculature. BONES: No acute findings. HARDWARE: None in the chest. OTHER: No other significant finding. IMPRESSION: No acute infiltrates. Upper lobes are hyperlucent from obstructive disease TECHNICAL DOCUMENTATION: JOB ID: [id number] [employer]- All Rights Reserved Reading location - IP/workstation name: [email or web address]
[2018-08-19 14:15] LABS: ARTERIAL BLOOD BASE EXCESS 0.5 mmol/L; ARTERIAL BLOOD FIO2 4L; ARTERIAL BLOOD H2CO3 1.32 mmol/L (1.05-1.35); ARTERIAL BLOOD HCO3 25.7 mmol/L (20-24); ARTERIAL BLOOD O2 SATURATION 90.8 % (94-98); ARTERIAL BLOOD PH 7.39 (7.35-7.45); ARTERIAL BLOOD PO2 60.6 mmHg (80-100); ARTERIAL BLOOD TOTAL CO2 27.1 mmol/L (21-25)
--- NOTE | 2018-08-19 15:21 | RADIOLOGY REPORT (SQ) ---
EXAM DESCRIPTION: CTA CHEST COMPLETED DATE/TIME: 08/19/2018 3:11 pm REASON FOR STUDY: Hypoxia with elevated d-dimer COMPARISON: Chest radiograph TECHNIQUE: CT scan of the chest performed using helical scanning technique with dynamic intravenous contrast injection. Images reviewed with lung, soft tissue and bone windows. Reconstructed coronal and sagittal MPR images reviewed. Additional 3 dimensional post-processing performed to develop Maximal Intensity Projection images (MT P). All images stored on PACS. All CT scanners at this facility use dose modulation, iterative reconstruction, and/or weight based d osing when appropriate to reduce radiation dose to as low as reasonably achievable (ALARA). [facility]: Dose Right [facility]: CareDose [facility]: Dose Right [facility]: Teradose 4D [facility]: RepairPal CONTRAST TYPE AND DOSE: contrast/concentration: Isovue 350.00 mg/ml; Total Contrast Delivered: 85.0 ml; Total Saline Delivered: 80.0 ml Contrast bolus optimized for the pulmonary arteries. Not diagnostic for the aorta. RENAL FUNCTION: Creatinine 1.21 RADIATION DOSE: CT Rad equipment meets quality standard of care and radiation dose reduction techniq ues were employed. CTDIvol: 36.2 - 41.3 mGy. DLP: 1349 mGy-cm. . LIMITATIONS: None. FINDINGS: LUNGS AND PLEURA: Scattered areas of parenchymal opacity. Possible scarring. AORTA AND GREAT VESSELS: No aneurysm. Contrast bolus not optimized for the aorta. HEART: No pericardial effusion. No significant coronary artery calcifications. PULMONARY ARTERIES: No emboli visualized in the main pulmonary arteries or the segmental branches. HILAR AND MEDIASTINAL STRUCTURES: No identified masses or abnormal nodes. HARDWARE: None in the chest. UPPER ABDOMEN: No significant findings. Limited exam. THYROID AND OTHER SOFT TISSUES: No masses. No adenopathy. BONES: Old upper lumbar compression fracture. 3D MIPS: Confirm above findings. OTHER: No other significant finding. IMPRESSION: No pulmonary emboli. Linear changes in the lungs likely scarring. COMMENT: Quality ID # [id number]: Final reports with documentation of one or more dose reduction techniques (e.g., Automated exposure control, adjustment of the mA and/or kV according to patient size, use of iterative reconstruction technique) TECHNICAL DOCUMENTATION: JOB ID: [id number] [employer]- All Rights Reserved Reading location - IP/workstation name: [email or web address]
[2018-08-19] MEDS ORDERED: LORAZEPAM INJ 2 MG/1 ML VIAL IV PRN ×2 (15:27→19:27)
[2018-08-19] MEDS ORDERED: LEVALBUTEROL HCL NEB 1.25 MG/3 ML AMPUL NEB PRN (16:23)
[2018-08-19] MEDS ORDERED: NORMAL SALINE 1000 ML 1,000 ML IV PRN (16:23)
[2018-08-19] MEDS ORDERED: DEXTROSE 40% GEL 15 GM TUBE PO PRN ×2 (16:23)
[2018-08-19] MEDS ORDERED: ONDANSETRON HCL INJ/PF 4 MG/2 ML SDV IV PRN (16:23)
[2018-08-19] MEDS ORDERED: DEXTROSE 50%-WATER 25 GM/50 ML DISP.SYRIN IV PRN ×2 (16:23)
[2018-08-19] MEDS ORDERED: ACETAMINOPHEN 325 MG TABLET PO PRN (16:23)
[2018-08-19] MEDS ORDERED: GLUCAGON,HUMAN RECOMB 1 MG INJ SUBCUT PRN (16:23)
[2018-08-19] MEDS ORDERED: LEVOFLOXACIN 750 MG/D5W RTU 750 MG/150 ML RTUPB IV ONE ×3 (18:00→18:44)
--- NOTE | 2018-08-19 20:03 | PDOC H&P ---
History of Present Illness Admission Date/PCP: 08/19/18 15:45 KEIRA DUVALL MD Patient complains of: DYSPNEA. SHORTNESS OF BREATH History of Present Illness: ANIYA YUN is a 52 year old female w/ a PMH of Bipolar 2 disorder, chronic back pain, HLD, and smoking (40 pack yr history). She presented to [facility] with a 2 day history of dyspnea and coughing. She states the symptoms are so severe they keep her up all night. The patient became acutely SOB today, which prompted her to come to the ED. Upon presentation, her SPO2 was 89% on RA, BP 95/59 HR 125 and RR 36. CXR was normal. Laboratory studies show mild hyponatremia (134) and hypokalemia (3.5), all other lab work benign. VBG indicative of hypoxia, no evidence of acidosis. Upon exam the patient is sitting in bed on BIPAP. She appears comfortable and is able to speak in full sentences while wearing the mask. She is A&O x 3, answers all questions appropriately. Wheezing can be auscultated in all lung alcazar. No central or peripheral cyanosis. Patient states she has no history of lung disease, she has never experiences a COPD exacerbation nor does she see a pilmonologist. The patient is asking to eat. Explained that she may not remove the mask in order to east because I am concerned about her SPO2 dropping. Patient proceeded to take food from family member and open contained as if she were going to eat it. Informed the patient the dangers of removing her mask prematurely and requested that she leave her ask on, patient stated understanding. Past Medical History Pulmonary Medical History: Reports: Chronic Obstructive Pulmonary Disease (COPD), Pneumonia GI Medical History: Reports: Gastroesophageal Reflux Disease Psychiatric Medical History: Reports: Bipolar Disorder, Depression Past Surgical History Past Surgical History: Reports: Cholecystectomy Social History Information Source: Patient Lives with: Family Smoking Status: Current Every Day Smoker Frequency of Alcohol Use: None Hx Recreational Drug Use: No Drugs: None Hx Prescription Drug Abuse: No - Advance Directive Resuscitation Status: Full Code Family History Family History: Reviewed & Not Pertinent, CAD - FATHER - [place] Parental Family History Reviewed: Yes Children Family History Reviewed: Yes Sibling(s) Family History Reviewed.: Yes Medication/Allergy Home Medications: Aripiprazole 20 mg PO DAILY 08/19/18 Hydrocodone/Acetaminophen [Masury 7.5-325 mg Tablet] 1 tab PO Q8HP PRN 08/19/18 Omeprazole 40 mg PO DAILY 08/19/18 Pregabalin [Lyrica] 300 mg PO Q12 08/19/18 Quetiapine Fumarate [Seroquel] 400 mg PO DAILY 08/19/18 Venlafaxine HCl [Venlafaxine HCl ER] 300 mg PO DAILY 08/19/18 Allergies/Adverse Reactions: cefaclor [From [facility]] Allergy (Verified 08/19/18 10:59) Penicillins Allergy (Verified 08/19/18 10:59) Review of Systems Constitutional: ABSENT: fever(s), headache(s) Eyes: ABSENT: visual disturbances Ears: ABSENT: hearing changes Nose, Mouth, and Throat: ABSENT: mouth pain Cardiovascular: ABSENT: chest pain, orthropnea Respiratory: PRESENT: cough, dyspnea Gastrointestinal: ABSENT: abdominal pain Genitourinary: ABSENT: difficulty urinating Neurological: PRESENT: weakness Psychiatric: PRESENT: anxiety Endocrine: ABSENT: cold intolerance, heat intolerance Allergic/Immunologic: PRESENT: seasonal rhinorrhea Physical Exam Vital Signs: Temp Pulse Resp BP Pulse Ox 98.6 F 127 H 26 H 109/65 94 08/19/18 11:06 08/19/18 11:06 08/19/18 16:01 08/19/18 16:00 08/19/18 16:01 Intake & Output 08/18/18 08/19/18 08/20/18 06:59 06:59 06:59 Intake Total 2197 Balance 2197 Weight 101.1 kg General appearance: PRESENT: morbidly obese Eye exam: PRESENT: conjunctiva pink, PERRLA Mouth exam: PRESENT: moist, tongue midline Neck exam: PRESENT: full ROM Respiratory exam: PRESENT: symmetrical, wheezes, other - REQUIRING BIPAP Cardiovascular exam: PRESENT: tachycardia Pulses: PRESENT: normal radial pulses, normal dorsalis pedis pul Vascular exam: PRESENT: normal capillary refill GI/Abdominal exam: PRESENT: normal bowel sounds, soft. ABSENT: distended, tenderness Rectal exam: PRESENT: deferred Extremities exam: PRESENT: full ROM. ABSENT: pedal edema Musculoskeletal exam: PRESENT: ambulatory, full ROM Neurological exam: PRESENT: alert, awake, oriented to person, oriented to place, oriented to time, oriented to situation Psychiatric exam: PRESENT: appropriate affect Skin exam: PRESENT: dry, intact, normal color Results Laboratory Results: 08/19/18 11:32 08/19/18 11:32 08/19/18 08/19/18 08/19/18 11:32 11:32 13:35 WBC 4.0 RBC 4.11 Hgb 12.4 Hct 35.8 L MCV 87 MCH 30.3 MCHC 34.7 RDW 14.7 H Plt Count 111 L Seg Neutrophils % 70.5 Lymphocytes % 18.9 Monocytes % 9.7 Eosinophils % 0.1 Basophils % 0.8 Absolute Neutrophils 2.8 Absolute Lymphocytes 0.8 Absolute Monocytes 0.4 Absolute Eosinophils 0.0 Absolute Basophils 0.0 Carbonic Acid 1.32 HCO3/H2CO3 Ratio 19:1 ABG pH 7.39 ABG pCO2 44.0 ABG pO2 60.6 L ABG HCO3 25.7 H ABG O2 Saturation 90.8 L ABG Base Excess 0.5 FiO2 4L Sodium 136.3 L Potassium 3.5 L Chloride 100 Carbon Dioxide 30 Anion Gap 6 BUN 9 Creatinine 1.21 Est GFR ( Amer) 56 L Est GFR (Non-Af Amer) 46 L Glucose 120 H Calcium 8.8 Total Bilirubin 1.0 AST 29 ALT 22 Alkaline Phosphatase 97 Total Protein 6.4 Albumin 3.6 08/19/18 08/19/18 11:32 11:32 Creatine Kinase 97 CK-MB (CK-2) < 0.22 Troponin I < 0.012 Impressions: Chest X-Ray 08/19/18 11:51 IMPRESSION: No acute infiltrates. Upper lobes are hyperlucent from obstructive disease Chest/Abdomen CTA 08/19/18 14:25 IMPRESSION: No pulmonary emboli. Linear changes in the lungs likely scarring. Status: Imported from PACS Assessment and Plan - Diagnosis (1) Acute hypoxemic respiratory failure Is this a current diagnosis for this admission?: Yes Plan: Secondary to COPD exacerbation stemming from recent URI Possibly triggered by seasonal allergies Patient denies history of pulmonary disease, despite 40 year smoking history Initial SPO2 89% on room air CXR benign CTA chest reveals scattered areas of parenchymal opacity, likely scarring, no other significant findings ABG indicative of hypoxia, no evidence of acidosis or hypercapnia Scheduled and as needed nebulizer treatments Plan for empiric antibiotic coverage with Levaquin, in the setting of an acute COPD exacerbation No plan for steroids at this time, as patient has requested to forego steroid treatment in light of her bipolar disorder. BID Mucinex Daily Zyrtec (2) COPD with acute exacerbation Is this a current diagnosis for this admission?: Yes Plan: Plan as above (3) Bipolar 2 disorder Is this a current diagnosis for this admission?: Yes Plan: Patient reports history of bipolar 2 disorder We will continue home dose medication once medication reconciliation is completed Due to her mental illness, patient is requesting not to receive IV steroids (4) HLD (hyperlipidemia) Is this a current diagnosis for this admission?: Yes Plan: [facility] HLD Lipid panel with a.m. labs Continue home dose medication (5) Tobacco abuse disorder Is this a current diagnosis for this admission?: Yes Plan: Patient admits to [id number] smoking history Encourage smoking cessation Offer nicotine patch - Time Time Spent with patient: 15-24 minutes Medications reviewed and adjusted accordingly: Yes Anticipated discharge: Home - Inpatient Certification Based on my medical assessment, after consideration of the patient's comorbidities, presenting symptoms, or acuity I expect that the services needed warrant INPATIENT care.: Yes I certify that my determination is in accordance with my understanding of Medicare's requirements for reasonable and necessary INPATIENT services [42 CFR 412.3e].: Yes Medical Necessity: Need For Continuous Telemetry Monitoring, Need for Nebulizer Therapy and Monitoring of Response, Need for IV Antibiotics
[2018-08-19] MEDS ORDERED: IBUPROFEN 800 MG TABLET PO PRN (20:30)
--- NOTE | 2018-08-19 20:56 | EKG REPORT ---
SEVERITY:- BORDERLINE ECG - SINUS TACHYCARDIA PROBABLE LEFT ATRIAL ABNORMALITY BORDERLINE T ABNORMALITIES, ANT-LAT LEADS : Confirmed by: Sofiya Armstrong MD 19-Aug-2018 20:54:39
[2018-08-19] MEDS: IPRATROPIUM/ALBUTEROL 0.5-2.5 MG/3 ML AMPUL NEB SCH (21:10)
[2018-08-19] MEDS: PANTOPRAZOLE SODIUM 40 MG VIAL IV SCH (22:43)
[2018-08-19] MEDS: GUAIFENESIN 600 MG TABLET.SA PO SCH (22:43)
[2018-08-19] MEDS: NALBUPHINE HCL INJ 10 MG/1 ML AMPULE IV PRN (22:52)
[2018-08-19] MEDS: QUETIAPINE FUMARATE 100 MG TABLET PO SCH (23:00)
[2018-08-20] MEDS: IPRATROPIUM/ALBUTEROL 0.5-2.5 MG/3 ML AMPUL NEB SCH ×6 (00:50→21:04)
[2018-08-20 05:50] LABS: ABSOLUTE LYMPHOCYTES (AUTO) 0.4 10^3/uL (0.5-4.7); ABSOLUTE MONOCYTES (AUTO) 0.3 10^3/uL (0.1-1.4); ABSOLUTE NEUT (AUTO) 2.1 10^3/uL (1.7-8.2); BASOPHILS % (AUTO) 0.1 % (0-2); HEMATOCRIT 29.6 % (36.0-47.0); HEMOGLOBIN 10.4 g/dL (12.0-15.5); LYMPHOCYTES % (AUTO) 13.3 % (13-45); MEAN CORPUSCULAR HEMOGLOBIN 30.6 pg (27.0-33.4); MEAN CORPUSCULAR VOLUME 87 fl (80-97); MONOCYTES % (AUTO) 9.3 % (3-13); RED CELL DISTRIBUTION WIDTH 14.7 % (11.5-14.0); SEGMENTED NEUTROPHILS % (AUTO) 77.3 % (42-78); TOTAL CELLS COUNTED % (AUTO) 100 %
[2018-08-20 05:56] LABS: PLATELET COUNT 81 10^3/uL (150-450); WHITE BLOOD COUNT 2.7 10^3/uL (4.0-10.5)
[2018-08-20 06:05] LABS: ALANINE AMINOTRANSFERASE 21 U/L (9-52); ALBUMIN 3.2 g/dL (3.5-5.0); ALKALINE PHOSPHATASE 73 U/L (38-126); ANION GAP 10 (5-19); ASPARTATE AMINO TRANSFERASE 19 U/L (14-36); BILIRUBIN,DIRECT 0.3 mg/dL (0.0-0.4); BILIRUBIN,TOTAL 0.5 mg/dL (0.2-1.3); BLOOD UREA NITROGEN 16 mg/dL (7-20); CALCIUM 8.8 mg/dL (8.4-10.2); CARBON DIOXIDE 26 mmol/L (22-30); CHLORIDE 102 mmol/L (98-107); GLUCOSE 180 mg/dL (75-110); PHOSPHORUS 3.4 mg/dL (2.5-4.5); POTASSIUM 3.3 mmol/L (3.6-5.0); SODIUM 137.8 mmol/L (137-145); TOTAL PROTEIN 5.9 g/dL (6.3-8.2)
[2018-08-20] MEDS ORDERED: LEVOFLOXACIN 750 MG/D5W RTU 750 MG/150 ML RTUPB IV SCH ×2 (10:00)
[2018-08-20] MEDS: GUAIFENESIN 600 MG TABLET.SA PO SCH ×2 (10:17→21:15)
[2018-08-20] MEDS: ARIPIPRAZOLE 5 MG TABLET PO SCH (10:17)
[2018-08-20] MEDS: CETIRIZINE 10 MG TABLET PO SCH (10:17)
[2018-08-20] MEDS: NICOTINE 21 MG/24 HR PATCH.TD24 TD SCH (10:18)
[2018-08-20] MEDS: ENOXAPARIN SODIUM INJ 40 MG/0.4 ML DISP.SYRIN SUBCUT SCH (10:18)
[2018-08-20] MEDS: PREGABALIN 100 MG CAPSULE PO SCH ×3 (10:18→18:02)
[2018-08-20] MEDS: PANTOPRAZOLE SODIUM 40 MG VIAL IV SCH ×2 (10:19→21:15)
[2018-08-20] MEDS: VENLAFAXINE HCL 75 MG CAP.SR.24H PO SCH (10:31)
[2018-08-20 13:20] LABS: FREE T3 2.07 pg/mL (2.77-5.27); FREE T4 (FREE THYROXINE) 0.91 ng/dL (0.78-2.19)
[2018-08-20] MEDS: NALBUPHINE HCL INJ 10 MG/1 ML AMPULE IV PRN (21:07)
[2018-08-20] MEDS: QUETIAPINE FUMARATE 100 MG TABLET PO SCH (21:15)
[2018-08-20] MEDS ORDERED: KETOROLAC TROMETHAMINE INJ/PF 30 MG/1 ML SDV ONE (21:50)
[2018-08-20] MEDS ORDERED: KETOROLAC TROMETHAMINE INJ/PF 30 MG/1 ML SDV IV ONE (22:15)
--- NOTE | 2018-08-20 22:23 | PDOC PROGRESS REPORT ---
Subjective Progress Note for:: 08/20/18 Subjective:: ANIYA YUN is a 52 year old female w/ a PMH of Bipolar 2 disorder, chronic back pain, HLD, and smoking (40 pack yr history). She presented to [facility] with a 2 day history of dyspnea and coughing. She was admitted to the hospitalist service for a COPD exacerbation. Initially on BIPAP she was admitted to the [facility]. The patient was seen this afternoon on rounds. She is resting comfortably on NC, the nurse was weaning her to room air as I began the interview. The patient was alert and oriented, she was able to speak in full sentences without pause. Reason For Visit: COPD WITH ACUTE EXACERBATION Physical Exam Vital Signs: Temp Pulse Resp BP Pulse Ox 97.4 F 98 16 113/72 98 08/20/18 15:25 08/20/18 15:46 08/20/18 15:46 08/20/18 15:25 08/20/18 15:46 Intake & Output 08/19/18 08/20/18 08/21/18 06:59 06:59 06:59 Intake Total 3042 1070 Output Total 600 Balance 2442 1070 Weight 104.2 kg Results Laboratory Results: 08/20/18 05:28 08/20/18 05:28 08/20/18 08/20/18 08/20/18 05:28 05:28 05:28 WBC 2.7 L D RBC 3.40 L Hgb 10.4 L Hct 29.6 L MCV 87 MCH 30.6 MCHC 35.0 RDW 14.7 H Plt Count 81 L Seg Neutrophils % 77.3 Lymphocytes % 13.3 Monocytes % 9.3 Eosinophils % 0.0 Basophils % 0.1 Absolute Neutrophils 2.1 Absolute Lymphocytes 0.4 L Absolute Monocytes 0.3 Absolute Eosinophils 0.0 Absolute Basophils 0.0 Sodium 137.8 Potassium 3.3 L Chloride 102 Carbon Dioxide 26 Anion Gap 10 BUN 16 Creatinine 0.96 Est GFR ( Amer) > 60 Est GFR (Non-Af Amer) > 60 Glucose 180 H Calcium 8.8 Phosphorus 3.4 Magnesium 2.4 H Total Bilirubin 0.5 AST 19 ALT 21 Alkaline Phosphatase 73 Total Protein 5.9 L Albumin 3.2 L TSH 0.42 L Free T4 Free T3 pg/mL 08/20/18 05:28 WBC RBC Hgb Hct MCV MCH MCHC RDW Plt Count Seg Neutrophils % Lymphocytes % Monocytes % Eosinophils % Basophils % Absolute Neutrophils Absolute Lymphocytes Absolute Monocytes Absolute Eosinophils Absolute Basophils Sodium Potassium Chloride Carbon Dioxide Anion Gap BUN Creatinine Est GFR ( Amer) Est GFR (Non-Af Amer) Glucose Calcium Phosphorus Magnesium Total Bilirubin AST ALT Alkaline Phosphatase Total Protein Albumin TSH Free T4 0.91 Free T3 pg/mL 2.07 L 08/19/18 08/19/18 11:32 11:32 Creatine Kinase 97 CK-MB (CK-2) < 0.22 Troponin I < 0.012 Impressions: Chest X-Ray 08/19/18 11:51 IMPRESSION: No acute infiltrates. Upper lobes are hyperlucent from obstructive disease Chest/Abdomen CTA 08/19/18 14:25 IMPRESSION: No pulmonary emboli. Linear changes in the lungs likely scarring. Assessment and Plan - Diagnosis (1) Acute hypoxemic respiratory failure Is this a current diagnosis for this admission?: Yes Plan: Secondary to COPD exacerbation stemming from recent URI Possibly triggered by seasonal allergies Patient denies history of pulmonary disease, despite 40 year smoking history Initial SPO2 89% on room air CXR benign CTA chest reveals scattered areas of parenchymal opacity, likely scarring, no other significant findings ABG indicative of hypoxia, no evidence of acidosis or hypercapnia Scheduled and as needed nebulizer treatments Plan for empiric antibiotic coverage with Levaquin, in the setting of an acute COPD exacerbation No plan for steroids at this time, as patient has requested to forego steroid treatment in light of her bipolar disorder. BID Mucinex Daily Zyrtec (2) COPD with acute exacerbation Is this a current diagnosis for this admission?: Yes Plan: Plan as above (3) Bipolar 2 disorder Is this a current diagnosis for this admission?: Yes Plan: Patient reports history of bipolar 2 disorder We will continue home dose venlaxafine and seroquel Due to her mental illness, patient is requesting not to receive IV steroids to avoid manic symptoms (4) HLD (hyperlipidemia) Is this a current diagnosis for this admission?: Yes Plan: Patient reports history of HLD but not on meds Will check Lipid panel with a.m. labs (5) Tobacco abuse disorder Is this a current diagnosis for this admission?: Yes Plan: Patient admits to [id number] smoking history Encourage smoking cessation Offer nicotine patch - Time Time Spent with patient: 15-24 minutes Medications reviewed and adjusted accordingly: Yes Anticipated discharge: Home Within: within 48 hours - Inpatient Certification Based on my medical assessment, after consideration of the patient's comorbidities, presenting symptoms, or acuity I expect that the services needed warrant INPATIENT care.: Yes I certify that my determination is in accordance with my understanding of Medicare's requirements for reasonable and necessary INPATIENT services [42 CFR 412.3e].: Yes Medical Necessity: Need for Nebulizer Therapy and Monitoring of Response, Risk of Complication if Not Cared For in Hospital
[2018-08-21 00:32] LABS: TROPONIN I < 0.012 ng/mL
[2018-08-21] MEDS: IPRATROPIUM/ALBUTEROL 0.5-2.5 MG/3 ML AMPUL NEB SCH ×4 (01:16→12:23)
[2018-08-21 05:50] LABS: HEMATOCRIT 28.5 % (36.0-47.0); HEMOGLOBIN 9.9 g/dL (12.0-15.5); MEAN CORPUSCULAR HEMOGLOBIN 30.7 pg (27.0-33.4); MEAN CORPUSCULAR HGB CONC 34.9 g/dL (32.0-36.0); MEAN CORPUSCULAR VOLUME 88 fl (80-97); RED BLOOD COUNT 3.23 10^6/uL (3.72-5.28); RED CELL DISTRIBUTION WIDTH 14.9 % (11.5-14.0); WHITE BLOOD COUNT 3.2 10^3/uL (4.0-10.5)
[2018-08-21 06:25] LABS: ALANINE AMINOTRANSFERASE 16 U/L (9-52); ALKALINE PHOSPHATASE 72 U/L (38-126); ASPARTATE AMINO TRANSFERASE 21 U/L (14-36); BILIRUBIN,DIRECT 0.3 mg/dL (0.0-0.4); BILIRUBIN,TOTAL 0.6 mg/dL (0.2-1.3); BLOOD UREA NITROGEN 20 mg/dL (7-20); CARBON DIOXIDE 29 mmol/L (22-30); CHLORIDE 106 mmol/L (98-107); CHOLESTEROL 123.29 mg/dL (0-200); GLUCOSE 91 mg/dL (75-110); PHOSPHORUS 3.8 mg/dL (2.5-4.5); POTASSIUM 3.4 mmol/L (3.6-5.0); SODIUM 139.9 mmol/L (137-145); TOTAL PROTEIN 5.5 g/dL (6.3-8.2); TRIGLYCERIDES 126 mg/dL (<150)
[2018-08-21 06:32] LABS: PLATELET COUNT 86 10^3/uL (150-450)
[2018-08-21 06:36] LABS: CREATINE KINASE MB 0.99 ng/mL (<4.55); DIRECT LDL 81 mg/dL (<100)
[2018-08-21 06:41] LABS: ANION GAP 5 (5-19)
[2018-08-21 06:42] LABS: TROPONIN I < 0.012 ng/mL
--- NOTE | 2018-08-21 08:01 | EKG REPORT ---
SEVERITY:- BORDERLINE ECG - SINUS TACHYCARDIA PROBABLE LEFT ATRIAL ABNORMALITY NONSPECIFIC LATERAL ST CHANGES. : Confirmed by: Teofilo Ahn MD 21-Aug-2018 08:00:37
[2018-08-21] MEDS: CETIRIZINE 10 MG TABLET PO SCH (09:50)
[2018-08-21] MEDS: VENLAFAXINE HCL 75 MG CAP.SR.24H PO SCH (09:50)
[2018-08-21] MEDS: ENOXAPARIN SODIUM INJ 40 MG/0.4 ML DISP.SYRIN SUBCUT SCH (09:50)
[2018-08-21] MEDS: PANTOPRAZOLE SODIUM 40 MG VIAL IV SCH (09:50)
[2018-08-21] MEDS: ARIPIPRAZOLE 5 MG TABLET PO SCH (09:50)
[2018-08-21] MEDS: PREGABALIN 100 MG CAPSULE PO SCH (09:50)
[2018-08-21] MEDS: GUAIFENESIN 600 MG TABLET.SA PO SCH (09:50)
[2018-08-21] MEDS: NICOTINE 21 MG/24 HR PATCH.TD24 TD SCH (09:51)
[2018-08-21] MEDS ORDERED: LEVOFLOXACIN 750 MG TABLET PO SCH (10:00)
[2018-08-21 12:17] VITALS: BP 104/62
[2018-08-21 12:26] LABS: CREATINE KINASE MB 0.84 ng/mL (<4.55)
[2018-08-21 12:32] LABS: TROPONIN I < 0.012 ng/mL
[2018-08-21] MEDS ORDERED: SALMETEROL XINAFOATE DISKUS 50 MCG/1 DOSE 28 DOSE IH SCH (13:00)
--- NOTE | 2018-08-21 21:42 | PDOC DISCHARGE SUMMARY ---
General - Admit/Disc Date/PCP Admission Date/Primary Care Provider: 08/19/18 15:45 KEIRA DUVALL MD Discharge Date: 08/21/18 - Discharge Diagnosis (1) Acute hypoxemic respiratory failure Is this a current diagnosis for this admission?: Yes Summary: Improved; patient now maintaining oxygen saturations while ambulatory on room air with minimal complaint of dyspnea on exertion and none while at rest. She is requesting discharge to home. Secondary to COPD exacerbation stemming from recent URI in patient with continuous tobacco use. Confirms 40 pack year smoking history CXR benign CTA chest reveals scattered areas of parenchymal opacity, likely scarring, no other significant findings ABG indicative of hypoxia, no evidence of acidosis or hypercapnia She was admitted to [facility] on continuous cardiac telemetry and supported with supplemental oxygen, scheduled and as needed nebulizer treatments, twice daily mucinex, and Zyrtec. She was empirically covered with Levaquin for bronchitis in the setting of an acute COPD exacerbation; she recieved a prescription at discharge to complete full course of therapy. No plan for steroids at this time, as patient has requested to forego steroid treatment in light of her bipolar disorder. She was provided a prescription for prednisone 60 mg once daily x 5 days to consider filling if her symptoms worsen or persist. Patient is advised that she Anoro at home, that she has not been taking due to "not believing I had COPD." She states she now understands the importance of maintenance medications for symptoms frequency/severity reduction and intends to start medication as was previously prescribed. She is strongly encouraged to stop smoking. At time of discharge, patient is in stable condition, maintaining oxygen saturations while ambulatory on room air, with minimal report of dyspnea on exertion, and requesting to discharge to home. She did not receive steroid therapy while admitted, per her request. She does continue to have expiratory wheezing. She reports that she has plenty of nebulizer medication at home and is provided a prescription for prednisone to start if her symptoms worsen. She is advised of the importance of following up with her primary care provider and is instructed to return tot he emergency department as needed for concerning symptoms. (2) COPD with acute exacerbation Is this a current diagnosis for this admission?: Yes Summary: Management as above. (3) Bipolar 2 disorder Is this a current diagnosis for this admission?: Yes Summary: Stable and without exacerbation at this time. Patient reports history of bipolar 2 disorder Continue home dose venlaxafine and seroquel Due to her mental illness, patient requested not to receive steroids to avoid manic symptoms. She did not receive steroid therapy while admitted per her request; has had gradual improvement in symptoms with nebulizer treatments. She was discharged with a prescription for prednisone 60 mg daily x 5 days at discharge to fill if her COPD sx worsen or persist. Recommend close follow up with PCP and monitoring by family members if she elects to take prednisone. (4) HLD (hyperlipidemia) Is this a current diagnosis for this admission?: Yes Summary: Pt reported Hx HLD. Lipid panel is acceptable; HDL 33, LDL 81, Triglycerides 126, TChol 123 Dietary discretion and lifestyle modifications are encouraged. (5) Tobacco abuse disorder Is this a current diagnosis for this admission?: Yes Summary: Smoking cessation is strongly encouraged. Additional 10 minutes of cessation counseling spent on day of discharge. Rx for NicoDerm patches is provided. (6) Tachycardia Is this a current diagnosis for this admission?: Yes Summary: Secondary to #1; improved. Pt was noted to be tachycardic (HR 130) while ambulatory full lap around unit; HR quickly decreased to <110 while at rest. Pt denies chest discomfort, dysnea at rest, orthopnea, and dependent edema. Troponins are negative x 4 EKG shows Sinus tachycardia w/o ST segment changes. CXR and CTA Chest are reassuring. Management of COPD exacerbation as above. - Additional Information Resuscitation Status: Full Code Discharge Diet: Cardiac Discharge Activity: Activity As Tolerated, Balance Activity w/Rest Prescriptions: Guaifenesin [Mucinex Sr 600 mg Tablet.sa] 600 mg PO Q12 #28 tablet.sa Levofloxacin [Levaquin 750 mg Tablet] 750 mg PO DAILY #5 tablet Nicotine [Nicoderm 21 mg/24 Hr Transderm Patch] 1 each TD DAILY #30 patch.td24 Prednisone [Deltasone 20 mg Tablet] 60 mg PO DAILY #15 tablet Umeclidinium Brm/Vilanterol Tr [Anoro Ellipta 62.5-25 Mcg INH] 1 each IH DAILY #1 blst.w.dev Home Medications: Aripiprazole 20 mg PO DAILY 08/19/18 Hydrocodone/Acetaminophen [[place] 7.5-325 mg Tablet] 1 tab PO Q8HP PRN 08/19/18 Omeprazole 40 mg PO DAILY 08/19/18 Pregabalin [Lyrica] 300 mg PO Q12 08/19/18 Quetiapine Fumarate [Seroquel] 400 mg PO DAILY 08/19/18 Venlafaxine HCl [Venlafaxine HCl ER] 300 mg PO DAILY 08/19/18 Acetaminophen [Tylenol 325 mg Tablet] 650 mg PO Q6HP PRN tablet 08/21/18 Aripiprazole [Abilify 5 mg Tablet] 20 mg PO DAILY tablet 08/21/18 Cetirizine HCl [Zyrtec 10 mg Tablet] 10 mg PO DAILY tablet 08/21/18 Guaifenesin [Mucinex Sr 600 mg Tablet.sa] 600 mg PO Q12 #28 tablet.sa 08/21/18 Ibuprofen [Motrin 800 mg Tablet] 800 mg PO Q6HP PRN tablet 08/21/18 Levofloxacin [Levaquin 750 mg Tablet] 750 mg PO DAILY #5 tablet 08/21/18 Nicotine [Nicoderm 21 mg/24 Hr Transderm Patch] 1 each TD DAILY #30 patch.td24 08/21/18 Prednisone [Deltasone 20 mg Tablet] 60 mg PO DAILY #15 tablet 08/21/18 Pregabalin [Lyrica 100 mg Capsule] 100 mg PO TID capsule 08/21/18 Quetiapine Fumarate [Seroquel 100 mg Tablet] 400 mg PO QHS tablet 08/21/18 Umeclidinium Brm/Vilanterol Tr [Anoro Ellipta 62.5-25 Mcg INH] 1 each IH DAILY #1 blst.w.dev 08/21/18 Venlafaxine HCl ER [Effexor Xr 75 mg Cap.sr] 300 mg PO DAILY cap.sr.24h 08/21/18 History of Present Illness History of Present Illness: Per H&P by Cristine Gifford NP-C: ANIYA YUN is a 52 year old female w/ a PMH of Bipolar 2 disorder, chronic back pain, HLD, and smoking (40 pack yr history). She presented to [facility] with a 2 day history of dyspnea and coughing. She states the symptoms are so severe they keep her up all night. The patient became acutely SOB today, which prompted her to come to the ED. Upon presentation, her SPO2 was 89% on RA, BP 95/59 HR 125 and RR 36. CXR was normal. Laboratory studies show mild hyponatremia (134) and hypokalemia (3.5), all other lab work benign. VBG indicative of hypoxia, no evidence of acidosis. Upon exam the patient is sitting in bed on BIPAP. She appears comfortable and is able to speak in full sentences while wearing the mask. She is A&O x 3, answers all questions appropriately. Wheezing can be auscultated in all lung alcazar. No central or peripheral cyanosis. Patient states she has no history of lung disease, she has never experiences a COPD exacerbation nor does she see a pilmonologist. The patient is asking to eat. Explained that she may not remove the mask in order to east because I am concerned about her SPO2 dropping. Patient proceeded to take food from family member and open contained as if she were going to eat it. Informed the patient the dangers of removing her mask prematurely and requested that she leave her ask on, patient stated understanding. Physical Exam Vital Signs: Temp Pulse Resp BP Pulse Ox 97.5 F 102 H 16 104/62 95 08/21/18 12:15 08/21/18 12:23 08/21/18 12:23 08/21/18 12:15 08/21/18 12:23 Intake & Output 08/20/18 08/21/18 08/22/18 06:59 06:59 06:59 Intake Total 3042 1550 Output Total 600 0 Balance 2442 1550 Weight 104.2 kg 104.3 kg General appearance: PRESENT: no acute distress, cooperative, obese, well-develop ed, well-nourished Head exam: PRESENT: atraumatic, normocephalic Eye exam: PRESENT: conjunctiva pink, EOMI, PERRLA. ABSENT: scleral icterus Ear exam: PRESENT: normal external ear exam Mouth exam: PRESENT: moist, tongue midline Neck exam: ABSENT: carotid bruit, JVD, lymphadenopathy, thyromegaly Respiratory exam: PRESENT: clear to auscultation alison, symmetrical, unlabored, wheezes. ABSENT: rales, rhonchi Cardiovascular exam: PRESENT: RRR, +S1, +S2, tachycardia - HR <110 at rest. ABSENT: diastolic murmur, rubs, systolic murmur Pulses: PRESENT: normal dorsalis pedis pul Vascular exam: PRESENT: normal capillary refill GI/Abdominal exam: PRESENT: normal bowel sounds, soft. ABSENT: distended, guarding, mass, organolmegaly, rebound, tenderness Rectal exam: PRESENT: deferred Extremities exam: PRESENT: full ROM. ABSENT: calf tenderness, clubbing, pedal edema Neurological exam: PRESENT: alert, awake, oriented to person, oriented to place, oriented to time, oriented to situation, CN II-XII grossly intact. ABSENT: motor sensory deficit Psychiatric exam: PRESENT: appropriate affect, normal mood. ABSENT: homicidal ideation, suicidal ideation Skin exam: PRESENT: dry, intact, warm. ABSENT: cyanosis, rash Results Laboratory Results: 08/21/18 05:21 08/21/18 05:21 08/21/18 08/21/18 05:21 05:21 WBC 3.2 L RBC 3.23 L Hgb 9.9 L Hct 28.5 L MCV 88 MCH 30.7 MCHC 34.9 RDW 14.9 H Plt Count 86 L Sodium 139.9 Potassium 3.4 L Chloride 106 Carbon Dioxide 29 Anion Gap 5 BUN 20 Creatinine 1.04 Est GFR ( Amer) > 60 Est GFR (Non-Af Amer) 55 L Glucose 91 Calcium 9.0 Phosphorus 3.8 Magnesium 2.3 Total Bilirubin 0.6 AST 21 ALT 16 Alkaline Phosphatase 72 Total Protein 5.5 L Albumin 3.0 L Triglycerides 126 Cholesterol 123.29 LDL Cholesterol Direct 81 VLDL Cholesterol 25.0 HDL Cholesterol 33 L 08/19/18 08/19/18 08/20/18 11:32 11:32 23:20 Creatine Kinase 97 93 CK-MB (CK-2) < 0.22 Troponin I < 0.012 08/20/18 08/21/18 08/21/18 23:20 05:21 05:21 Creatine Kinase 97 CK-MB (CK-2) 0.90 0.99 Troponin I < 0.012 < 0.012 08/21/18 08/21/18 11:25 11:25 Creatine Kinase 104 CK-MB (CK-2) 0.84 Troponin I < 0.012 Impressions: Chest X-Ray 08/19/18 11:51 IMPRESSION: No acute infiltrates. Upper lobes are hyperlucent from obstructive disease Chest/Abdomen CTA 08/19/18 14:25 IMPRESSION: No pulmonary emboli. Linear changes in the lungs likely scarring. Qualifiers - * PATIENT BEING DISCHARGED WITH ANY OF THE FOLLOWING DIAGNOSIS: No Plan Discharge Plan: Discharge to home with self care. Follow up with Primary Care Provider within 1 week. STOP Smoking. START taking Anoro as previously prescribed. Recommend short course of prednisone; patient declines due to concern this make exacerbate her Bipolar disorder. She is provided a prescription at discharge and encouraged to consider filling the Rx if she notes she is using her nebulizer and/or rescue inhaler more than 4 times daily over the next few days. She is instructed to return to the emergency department as needed for concerning symptoms. Time Spent: Less than 30 Minutes
== END 2018-08-21 13:00 | disposition home or self-care (01) | DRG 189 ==
LOC: ER 10:59 → EH 15:45 → 3S 18:30
PROVIDERS: ADMIT Internal Medicine; ATTEND Internal Medicine
PROC: 5A09457 Assistance with Respiratory Ventilation, 24-96 Consecutive Hours, Continuous Positive Airway Pressure (ICD-10-PCS; principal; 2018-08-19)
DX: J96.01 Acute respiratory failure with hypoxia (principal); J44.1 Chronic obstructive pulmonary disease with (acute) exacerbation; E87.1 Hypo-osmolality and hyponatremia; F31.81 Bipolar II disorder; Z88.0 Allergy status to penicillin; K21.9 Gastro-esophageal reflux disease without esophagitis; G89.29 Other chronic pain; M54.9 Dorsalgia, unspecified; E87.6 Hypokalemia; Z90.49 Acquired absence of other specified parts of digestive tract; E66.01 Morbid (severe) obesity due to excess calories; E78.5 Hyperlipidemia, unspecified; F17.210 Nicotine dependence, cigarettes, uncomplicated; T50.996A Underdosing of other drugs, medicaments and biological substances, initial encounter; Z91.128 Patient's intentional underdosing of medication regimen for other reason; R00.0 Tachycardia, unspecified
CPT/HCPCS: 36415; 71045; 71275; 80053; 80061; 82550; 82553; 82803; 83735; 84100; 84439; 84443; 84481; 84484; 85025; 85027; 85379; 87070; 87205; 93005; 93010; 94640; 94660; 96361; 96365; 96366; 96375; 99291; J1885; J1956; J2060; J2300; J2930; J3475; J3490; J7030; J7120; J7620; S0164

== ENCOUNTER 2019-05-02 13:55 | Emergency (ER) | payer MEDICARE, MEDICAID ==
--- NOTE | 2019-05-02 14:59 | ER Document Report ---
ED Medical Screen (RME) - General Chief Complaint: Breathing Difficulty Stated Complaint: FALL/LEFT SIDE AND ARM PAIN Time Seen by Provider: 05/02/19 14:52 Primary Care Provider: KEIRA DUVALL MD [Primary Care Provider] - Follow up as needed Notes: 53-year-old female with COPD presents the emergency department with chief complaint of significant left-sided pain after a fall over the past weekend. Patient saw her primary doctor who ordered a CT which did show some fat stranding that was concerning for a possible hematoma. Patient said that she drove to the hospital to get results so she decided to check in to get seen for the pain. Patient states she has pain with inspiration and movement. Patient is a smoker. Exam: Not well-appearing no acute distress, area of ecchymosis on the left mid axillary line along the lower ribs that is acutely tender to palpation I have greeted and performed a rapid initial assessment of this patient. A comprehensive ED assessment and evaluation of the patient, analysis of test results and completion of medical decision making process will be conducted by an additional ED providers. TRAVEL OUTSIDE OF THE [place] IN LAST 30 DAYS: No - Related Data Allergies/Adverse Reactions: cefaclor [From Ceclor] Allergy (Verified 05/02/19 14:46) Penicillins Allergy (Verified 05/02/19 14:46) Past Medical History - Social History Chew tobacco use (# tins/day): No Frequency of alcohol use: None Drug Abuse: None Pulmonary Medical History: Reports: Hx COPD, Hx Pneumonia Renal/ Medical History: Denies: Hx Peritoneal Dialysis GI Medical History: Reports: Hx Gastroesophageal Reflux Disease Psychiatric Medical History: Reports: Hx Bipolar Disorder, Hx Depression Past Surgical History: Reports: Hx Cholecystectomy Physical Exam - Vital signs Vitals: Temp Pulse Resp BP Pulse Ox 97.9 F 105 H 20 138/94 H 93 05/02/19 14:05/02/19 14:05/02/19 14:05/02/19 14:05/02/19 14:02 Course - Vital Signs Vital signs: Temp Pulse Resp BP Pulse Ox 97.9 F 105 H 20 138/94 H 93 05/02/19 14:02 05/02/19 14:02 05/02/19 14:02 05/02/19 14:02 05/02/19 14:02 Doctor's Discharge - Discharge Referrals: KEIRA DUVALL MD [Primary Care Provider] - Follow up as needed
[2019-05-02 15:59] LABS: ALKALINE PHOSPHATASE 133 U/L (38-126); ANION GAP 10 (5-19); ASPARTATE AMINO TRANSFERASE 30 U/L (14-36); BILIRUBIN,DIRECT 0.3 mg/dL (0.0-0.4); BILIRUBIN,TOTAL 0.7 mg/dL (0.2-1.3); BLOOD UREA NITROGEN 15 mg/dL (7-20); CALCIUM 9.3 mg/dL (8.4-10.2); CARBON DIOXIDE 26 mmol/L (22-30); CHLORIDE 101 mmol/L (98-107); GLUCOSE 97 mg/dL (75-110); POTASSIUM 4.3 mmol/L (3.6-5.0)
[2019-05-02 16:24] LABS: ABSOLUTE LYMPHOCYTES (AUTO) 1.3 10^3/uL (0.5-4.7); ABSOLUTE MONOCYTES (AUTO) 0.4 10^3/uL (0.1-1.4); ABSOLUTE NEUT (AUTO) 3.9 10^3/uL (1.7-8.2); BASOPHILS % (AUTO) 0.4 % (0-2); EOSINOPHILS % (AUTO) 0.6 % (0-6); HEMATOCRIT 38.6 % (36.0-47.0); LYMPHOCYTES % (AUTO) 23.1 % (13-45); MEAN CORPUSCULAR HEMOGLOBIN 28.8 pg (27.0-33.4); MEAN CORPUSCULAR HGB CONC 33.8 g/dL (32.0-36.0); MEAN CORPUSCULAR VOLUME 85 fl (80-97); MONOCYTES % (AUTO) 7.1 % (3-13); PLATELET COUNT 179 10^3/uL (150-450); RED BLOOD COUNT 4.53 10^6/uL (3.72-5.28); RED CELL DISTRIBUTION WIDTH 14.5 % (11.5-14.0); SEGMENTED NEUTROPHILS % (AUTO) 68.8 % (42-78); TOTAL CELLS COUNTED % (AUTO) 100 %; WHITE BLOOD COUNT 5.7 10^3/uL (4.0-10.5)
--- NOTE | 2019-05-02 16:40 | ER Document Report ---
ED General - General Chief Complaint: Breathing Difficulty Stated Complaint: FALL/LEFT SIDE AND ARM PAIN Time Seen by Provider: 05/02/19 14:52 Primary Care Provider: KEIRA DUVALL MD [Primary Care Provider] - Follow up as needed Mode of Arrival: Ambulatory Information source: Patient TRAVEL OUTSIDE OF THE [place] IN LAST 30 DAYS: No - HPI Onset: Other - 6 days ago Quality of pain: Achy, Dull Severity: Severe Pain Level: 5 Associated symptoms: Hurts to breath, Other - Abdominal pain Exacerbated by: Movement - Related Data Allergies/Adverse Reactions: cefaclor [From Ceclor] Allergy (Verified 05/02/19 14:46) Penicillins Allergy (Verified 05/02/19 14:46) Past Medical History - Social History Smoking Status: Current Every Day Smoker Chew tobacco use (# tins/day): No Frequency of alcohol use: None Drug Abuse: None Lives with: Family Family History: Reviewed & Not Pertinent, CAD - FATHER - [place] Patient has suicidal ideation: No Patient has homicidal ideation: No Pulmonary Medical History: Reports: Hx COPD, Hx Pneumonia Renal/ Medical History: Denies: Hx Peritoneal Dialysis GI Medical History: Reports: Hx Gastroesophageal Reflux Disease Psychiatric Medical History: Reports: Hx Bipolar Disorder, Hx Depression Past Surgical History: Reports: Hx Cholecystectomy Review of Systems - Review of Systems Respiratory: Hurts to breathe Gastrointestinal: Abdominal pain - Left upper quadrant abdominal pain with ecchymosis over the left upper quadrant abdomen and lower rib cage. Musculoskeletal: Muscle pain, Muscle stiffness Physical Exam - Vital signs Vitals: Temp Pulse Resp BP Pulse Ox 97.9 F 105 H 20 138/94 H 93 05/02/19 14:02 05/02/19 14:02 05/02/19 14:02 05/02/19 14:02 05/02/19 14:02 Interpretation: Normal - Notes Notes: Obese - General General appearance: Appears well, Alert - HEENT Head: Normocephalic, Atraumatic Eyes: Normal Pupils: PERRL - Respiratory Respiratory status: No respiratory distress Chest status: Nontender Breath sounds: Normal Chest palpation: Normal - Cardiovascular Rhythm: Regular Heart sounds: Normal auscultation Murmur: No - Abdominal Inspection: Normal Distension: No distension Bowel sounds: Normal Tenderness: Nontender, Tender, Other - Tenderness in the left upper quadrant just below the costal margin laterally. Patient has ecchymosis in this region. No crepitus noted guarding of the left upper quadrant. Organomegaly: No organomegaly - Back Back: Normal, Nontender - Extremities General upper extremity: Normal inspection, Nontender, Normal color, Normal ROM, Normal temperature General lower extremity: Normal inspection, Nontender, Normal color, Normal ROM, Normal temperature, Normal weight bearing. No: Lisa's sign - Neurological Neuro grossly intact: Yes Cognition: Normal Orientation: AAOx4 [place] Coma Scale Eye Opening: Spontaneous Luci Coma Scale Verbal: Oriented Luci Coma Scale Motor: Obeys Commands Luci Coma Scale Total: 15 Speech: Normal Motor strength normal: LUE, RUE, LLE, RLE Sensory: Normal - Psychological Associated symptoms: Normal affect, Normal mood - Skin Skin Temperature: Warm Skin Moisture: Dry Skin Color: Normal, Ecchymosis, Other - Scattered ecchymotic macular bruising noted in the left arm left lower rib cage anterior region and left upper quadrant of abdomen. Course - Re-evaluation Re-evalutation: 05/02/19 20:[address] scan of chest abdomen and pelvis which discloses left-sided rib fractures 5 through 9 minimally displaced with no pneumothorax. Abdomen did not show any acute injury secondary to her trauma. Inasmuch as patient fell 6 days ago and thus far has no pneumothorax or hemothorax there is no indication that patient is required to be admitted to the hospital chest pain management at this time. 05/02/19 20:08 - Vital Signs Vital signs: Temp Pulse Resp BP Pulse Ox 97.9 F 105 H 20 138/94 H 93 05/02/19 14:02 05/02/19 14:02 05/02/19 14:02 05/02/19 14:02 05/02/19 14:02 - Laboratory Result Diagrams: 05/02/19 16:00 05/02/19 15:07 Laboratory results interpreted by me: 05/02/19 05/02/19 15:07 16:00 RDW 14.5 H Sodium 136.7 L Est GFR (MDRD) Non-Af 58 L Alkaline Phosphatase 133 H - Diagnostic Test Radiology reviewed: Image reviewed, Reports reviewed Discharge - Discharge Clinical Impression: Multiple fractures of rib involving four or more ribs, Bipolar 2 disorder Condition: Good Disposition: HOME, SELF-CARE Prescriptions: Naproxen 500 mg PO BID PRN #30 tablet PRN Reason: Oxycodone HCl/Acetaminophen [Percocet 5-325 mg Tablet] 1 tab PO Q6 PRN #20 tab PRN Reason: Pain Scale Of 5 Forms: Smoking Cessation Education Referrals: KEIRA DUVALL MD [Primary Care Provider] - Follow up as needed
[2019-05-02] MEDS ORDERED: NORMAL SALINE 500 ML IV ONE (17:50)
--- NOTE | 2019-05-02 18:24 | RADIOLOGY REPORT (SQ) ---
EXAM DESCRIPTION: U/S ABDOMEN LTD W/DOPPLER COMPLETED DATE/TIME: 05/02/2019 6:11 pm REASON FOR STUDY: Fall, concern for hematoma left mid axillary line COMPARISON: None. TECHNIQUE: Dynamic and static grayscale images acquired of the localized site of clinical concern an d recorded on PACS. Additional selected color Doppler and spectral images recorded. SITE OF CONCERN: Left axilla LIMITATIONS: None. FINDINGS: No fluid collection. OTHER: No other significant finding. IMPRESSION: No fluid collection. TECHNICAL DOCUMENTATION: JOB ID: [id number] [id number] 2010 [employer]- All Rights Reserved Reading location - IP/workstation name: [email or web address]
--- NOTE | 2019-05-02 19:54 | RADIOLOGY REPORT (SQ) ---
EXAM DESCRIPTION: CT CHEST WITHOUT; CT ABD/PELVIS NO ORAL OR IV COMPLETED DATE/TIME: 05/02/2019 7:31 pm REASON FOR STUDY: trauma/ fall/left sided chest pain; blunt trauma to left upper quadrant abdomen COMPARISON: None. TECHNIQUE: CT scan of the chest performed without intravenous contrast using helical scanning techni que. Images reviewed with lung, soft tissue and bone windows. Reconstructed coronal and sagittal MPR images reviewed. All images stored on PACS. All CT scanners at this facility use dose modulation, iterative reconstruction, and/or weight based d osing when appropriate to reduce radiation dose to as low as reasonably achievable (ALARA). [facility]: Dose Right [facility]: CareDose [facility]: Dose Right [facility]: Teradose 4D [facility]: Smart [employer] RADIATION DOSE: CT Rad equipment meets quality standard of care and radiation dose reduction techniq ues were employed. CTDIvol: 19.0 mGy. DLP: 1487 mGy-cm. mGy. LIMITATIONS: None. FINDINGS: AXILLAE: No adenopathy. CHEST WALL: No masses. No subcutaneous air. LUNGS: Bibasilar scattered subsegmental atelectasis. No pneumothorax. PLEURA: No effusions. No calcifications. THYROID: No masses or significant asymmetry. HILAR AND MEDIASTINAL STRUCTURES: No identified masses or abnormal nodes. AORTA AND GREAT VESSELS: No aneurysm. HEART: No pericardial effusion. HARDWARE AND LIFELINES: None. BONES: Nondisplaced fractures of the anterior left 5th through 9th ribs. OTHER: No other significant finding. IMPRESSION: Nondisplaced fractures of the anterior left 5th through 9th ribs.Bibasilar scattered sub segmental atelectasis. No pneumothorax. COMPARISON: None. TECHNIQUE: CT scan of the abdomen and pelvis performed without intravenous contrast and withoral con trast using helical scanning technique with dynamic intravenous contrast injection. Images reviewed with lung, soft tissue and bone windows. Reconstructed coronal and sagittal MPR images reviewed. Al l images stored on PACS. All CT scanners at this facility use dose modulation, iterative reconstruction, and/or weight based d osing when appropriate to reduce radiation dose to as low as reasonably achievable (ALARA). [facility]: Dose Right [facility]: SureCare [facility]: Dose Right [facility]: Teradose 4D [facility]: [employer] RADIATION DOSE: CT Rad equipment meets quality standard of care and radiation dose reduction techniq ues were employed. CTDIvol: 19.0 mGy. DLP: 1487 mGy-cm.mGy. LIMITATIONS: None. FINDINGS: LIVER: Normal size. No masses. No dilated ducts. SPLEEN: Normal size. No focal lesions. PANCREAS: No masses. No significant calcifications. No adjacent inflammation or peripancreatic flui d collections. Pancreatic duct not dilated. GALLBLADDER: No identified stones by CT criteria. No inflammatory changes to suggest cholecystitis. ADRENAL GLANDS: No significant masses or asymmetry. RIGHT KIDNEY AND URETER: No solid masses. Assessment limited by lack of IV contrast. No significant c alcification. No hydronephrosis or hydroureter. LEFT KIDNEY AND URETER: No solid masses. Assessment limited by lack of IV contrast. No significant ca lcification. No hydronephrosis or hydroureter. AORTA AND VESSELS: No aneurysm. RETROPERITONEUM: No retroperitoneal adenopathy, hemorrhage or masses. APPENDIX: Normal. LARGE AND SMALL BOWEL: No dilatation. No masses. No wall thickening. ABDOMINAL WALL: No hernia or masses. PERITONEAL CAVITY: No free air. No free fluid. No peritoneal implants or masses. PELVIS: No mass or free fluid. Normal bladder. BONES: No acute findings. Old compression deformity of the L1 vertebral body with moderate degenera tive disc disease. OTHER: No other significant finding. IMPRESSION: No acute findings in the abdomen or pelvis. TECHNICAL DOCUMENTATION: JOB ID: [id number] [place]-72 Quality ID # [id number]: Final reports with documentation of one or more dose reduction techniques (e.g., Au tomated exposure control, adjustment of the mA and/or kV according to patient size, use of iterative reconstruction technique) 2010 [employer]- All Rights Reserved Reading location - IP/workstation name: [email or web address]
[2019-05-02] MEDS ORDERED: OXYCODONE-ACETAMINOPHEN 5-325 MG TABLET PO ONE (20:05)
[2019-05-02 20:30] VITALS: BP 130/94
== END 2019-05-02 20:33 | disposition home or self-care (01) ==
LOC: ER 13:55
DX: S22.42XA Multiple fractures of ribs, left side, initial encounter for closed fracture (principal); S30.1XXA Contusion of abdominal wall, initial encounter; S40.022A Contusion of left upper arm, initial encounter; R07.1 Chest pain on breathing; R10.12 Left upper quadrant pain; W19.XXXA Unspecified fall, initial encounter; W22.03XA Walked into furniture, initial encounter; Y92.009 Unspecified place in unspecified non-institutional (private) residence as the place of occurrence of the external cause; F31.81 Bipolar II disorder; J44.9 Chronic obstructive pulmonary disease, unspecified; F17.200 Nicotine dependence, unspecified, uncomplicated; Z88.1 Allergy status to other antibiotic agents; Z88.0 Allergy status to penicillin
CPT/HCPCS: 99284; 96360; 36415; 85025; 80053; 76705; 93976; 71250; 74176; A9270; J7040